=== PATIENT | female | born 1985 | race American Indian/Alaskan Native ===

== ENCOUNTER 2017-04-06 22:10 | Inpatient (IN) | payer OTHER ==
[2017-04-06 22:51] VITALS: BMI 26.1
--- NOTE | 2017-04-06 23:07 | ED PDOC ---
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 Patient states that she was walking to the bathroom and next thing she remembers is that she woke up laying down on the floor with her godmother waking her up. At the present time, patient is complaining of feeling dizzy, with chronic headache and facial pain related to her cancer as well as a tactile fever. Otherwise: (-) tinnitus, (-) hearing loss, (-) chest pain, (-) dyspnea, (-) cough, (-) sore throat, (-) abdominal pain, (-) vomiting, (-) diarrhea, (-) urinary symptoms, (-) GI bleeding. Patient reports she has had a similar episode in the past, she ended up being hospitalized for inflammation and her sinuses and received IV antibiotics. Past Medical History - Provider Review Nursing Documentation Reviewed: Yes - Cardiac Hx Cardiac Disorders: No - Pulmonary Hx Respiratory Disorders: No - Neurological Hx Neurological Disorder: No - HEENT Hx HEENT Disorder: No - Renal Hx Renal Disorder: No - Endocrine/Metabolic Hx Endocrine Disorders: No - Hematological/Oncological Hx Cancer: Yes (Nasal Pharengeal Carcinoma) - Integumentary Hx Dermatological Disorder: No - Musculoskeletal/Rheumatological Hx Musculoskeletal Disorders: No - Gastrointestinal Hx Gastrointestinal Disorders: No - Genitourinary/Gynecological Hx Genitourinary Disorders: No - Psychiatric Hx Psychophysiologic Disorder: No Hx Substance Use: No - Anesthesia Hx Anesthesia: No Family/Social History - Physician Review Nursing Documentation Reviewed: Yes Family/Social History: No Known Family HX Smoking Status: Never Smoked Hx Alcohol Use: No Hx Substance Use: No Allergies/Home Meds Allergies/Adverse Reactions: Allergies acetaminophen [From Percocet] Allergy (Verified 04/06/17 22:56) RASH ketorolac [From Toradol] Allergy (Verified 04/06/17 22:56) RASH metoclopramide [From Reglan] Allergy (Verified 04/06/17 22:56) RASH ondansetron [From Zofran (as hydrochloride)] Allergy (Verified 04/06/17 22:56) RASH oxycodone [From Percocet] Allergy (Verified 04/06/17 22:56) RASH lactose Adverse Reaction (Verified 04/06/17 22:56) RASH Review of Systems - Review of Systems Constitutional: Normal, Fevers (tactile). 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 absent: Vision Changes , Photophobia, Eye Pain ENT: Normal. absent: Hearing Changes, Tinnitus, Sore Throat, Rhinorrhea Respiratory: Normal. absent: SOB, Cough, Sputum Cardiovascular: Normal. absent: Chest Pain, Palpitations, Edema Gastrointestinal: Normal. absent: Abdominal Pain, Stool Changes, Appetite Changes Musculoskeletal: Normal. absent: Arthralgias, Back Pain, Neck Pain Skin: Normal Neurological: Normal, Headache (chronic headache related to her cancer), Dizziness. absent: Focal Weakness, Gait Changes, Speech Changes, Facial Droop Physical Exam - Physical Exam Narrative Physical Exam (Text): 04/07/17 02:14 GENERAL APPEARANCE: Patient is awake, alert, oriented x 3, in moderate painful distress. SKIN: Warm, dry; (-) cyanosis. HEAD: (-) scalp swelling, (+) diffuse tenderness to the face and scalp. EYES: (-) conjunctival pallor. ENMT: TMs normal. Mucous membranes dry. NECK: (+) mild anterior tenderness, (-) stiffness, (-) lymphadenopathy. Carotids : (-) bruit. CHEST AND RESPIRATORY: (-) rales, (-) rhonchi, (-) wheezes; breath sounds equal bilaterally. HEART AND CARDIOVASCULAR: (-) irregularity; (-) murmur, (-) gallop. ABDOMEN AND GI: Soft; (-) distention, (-) tenderness, (-) rebound, (-) guarding , (-) palpable masses, (-) flank tenderness. EXTREMITIES: (-) deformity; (-) edema. Distal pulses: present. NEURO AND PSYCH: Mental status as above. fisher hoop net: (-) nystagmus; Pupils equal & reactive, EOMI, (-) facial asymmetry; (-) dysarthria; tongue and uvula midline. Strength and DTRs symmetric. Gait: normal. Vital Signs Temp Pulse Resp BP Pulse Ox 04/06/17 22:40 98.1 F 85 18 139/85 100 Medical Decision Making ED Course and Treatment: 04/07/17 02:15 31 yo F with PMD of anemia and nasopharyngeal cancer, presents with syncopal episode prior to arrival. Plan: -- Labs -- IV fluids -- Urinalysis -- EKG -- CXR -- Dilaudid / benadryl -- Reassess and disposition -- CT head / maxillofacial 04/07/17 02:20 CXR : NAD, as read by PA EKG: NSR at 90 bpm, (-) acute ST changes, as read by PA. Diagnostic results reviewed and discussed with the patient in great detail. On re-evaluation, patient reports continued pain despite initial dose of 2 mg of dilaudid IV. On re-evaluation, patient is ambulating in the ER in no acute distress. Results d/w the patient. Rocephin 1 g IV and another dose of 2 mg IV dilaudid ordered for pain. Case d/w medical videographer and Dr. Guillen, agrees with current plan. Patient states she fully agrees with and understands further plan and care. I have given the patient opportunity to ask any additional questions. - Lab Interpretations Lab Results: 04/06/17 23:43 04/06/17 23:43 Lab Results 04/06/17 23:43: Sodium 139, Potassium 4.1, Chloride 105, Carbon Dioxide 28, Anion Gap 10, BUN 12, Creatinine 0.7, Est GFR ( Amer) > 60, Est GFR (Non- Af Amer) > 60, Random Glucose 82, Calcium 9.5, Total Bilirubin 0.2, AST 21, ALT 25, Alkaline Phosphatase 61, Lactate Dehydrogenase 497, Total Creatine Kinase 37 , Troponin I < 0.01, Total Protein 6.5, Albumin 3.8, Globulin 2.7, Albumin/ Globulin Ratio 1.4 04/06/17 23:43: Urine Color Yellow, Urine Appearance Sl cloudy, Urine pH 6.0, Ur Specific [place] >= 1.030, Urine Protein 30 H, Urine Glucose (UA) Negative, Urine Ketones Trace H, Urine Blood Negative, Urine Nitrate Negative, Urine Bilirubin Negative, Urine Urobilinogen 0.2, Ur Leukocyte Esterase Trace H, Urine RBC 0 - 2, Urine WBC 1 - 3, Ur Epithelial Cells 1 - 3, Calcium Oxalate Crystal Small, Urine Bacteria Few, Urine Other Mucus 04/06/17 23:43: WBC 6.1, RBC 3.59, Hgb 10.0 L, Hct 31.2 L, MCV 86.9, MCH 27.9, MCHC 32.1, RDW 16.1 H, Plt Count 291, MPV 10.6, Gran % 81.0 H, Lymph % (Auto) 9.8 L, [place] % (Auto) 6.2 H, Eos % (Auto) 2.8, Baso % (Auto) 0.2, Gran # 4.95, Lymph # 0.6 L, [place] # 0.4, Eos # 0.2, Baso # 0.01 I have reviewed the lab results: Yes (Hgb 10 / Hct 31. Urinalysis +ketones and + protien) - RAD Interpretation Narrative RAD Interpretations (Text): 04/07/17 02:18 CT head: FINDINGS: Limitations: Brain: There is no mass effect or midline shift, and there is no specific finding of intracranial metastasis or of hemorrhage within the limitations of axial noncontrast head CT. Ventricles: Unremarkable. No ventriculomegaly. Bones/joints: No fractures are seen. Series 3 image 2, there is suspicion for bony erosion of the clivus, and malignancy should be excluded. Soft tissues: Unremarkable. Sinuses: There are surgical changes with partial resection of the sphenoid with nonvisualization of the sphenoid sinuses. Comparison with surgical history and previous imaging is strongly recommended. There is mucoperiosteal thickening in the bilateral left greater than right ethmoids and in the left frontal sinus. Mastoid air cells: The bilateral mastoid air cells are predominantly opacified and mastoiditis is a consideration. Nasopharynx: Please note this noncontrast CT is not appropriate for exclusion of recurrent malignancy in this patient with a history of nasopharyngeal malignancy. In addition, previous imaging is not available for review. IMPRESSION: no mass effect or midline shift. Suspicion for malignant involvement of the clivus. Extensive postoperative changes of the sphenoid, nasopharynx. Dictated and Authenticated by: Yokasta Morales MD 04/07/2017 1:44 AM Eastern Time ([place] & [place]) CT maxillofacial: FINDINGS: Bones/joints: Included portions of the cervical spine with no apparent malalignment. No acute fracture. Soft tissues: Normal epiglottis. Orbits: Unremarkable. Sinuses: There is redemonstration of opacification of the bilateral left greater than right ethmoid air cells, the left frontal sinus. Redemonstration that the majority of the sphenoid including the sphenoid sinuses is not visible and correlation with surgical history is advised. There is dense opacification of the bilateral maxillary sinuses. Sinus pathology certainly might contribute to the acute symptoms of headache. No air-fluid levels. Brain: Please refer also to CT of the brain. Sella: The sella turcica and appears partly eroded posteriorly as well as expanded. Other findings: There is redemonstration of a moth-eaten appearance to the clivus which is suspicious for malignancy. The pterygoid plates are present, coronal image 28 an irregular appearance to the right medial pterygoid which may be partly related to previous treatment with malignancy not excluded.. Patient is status post resection of the posterior nasal septum and sphenoid sinuses, with partial resection of the bilateral medial maxillary ivey , and the turbinates. IMPRESSION: suspicion for recurrent malignancy, correlation with surgical history and correlation with previous imaging is strongly recommended, further noting the great limitations of noncontrast CT. Specific suspicion for involvement of the clivus with metastatic disease, specific concern regarding expansion and erosion of the sella turcica. Magnetic resonance imaging is favored for a next step in evaluation. Extensive disease of the remaining paranasal sinuses noting that there has been resection of the sphenoid sinuses. Dictated and Authenticated by: Yokasta Morales MD 04/07/2017 1:57 AM Eastern Time ([place] & [place]) Radiology Orders: 04/06/17 23:07 CHEST TWO VIEWS (PA/LAT) [RAD] Stat 04/06/17 23:12 HEAD W/O CONTRAST [CT] Stat MAXILLOFACIAL W/O CONTRAST [CT] Stat - Medication Orders Current Medication Orders: Hydromorphone HCl (Dilaudid) 2 mg IVP ONCE ONE Stop: 04/07/17 02:16 Discontinued Medications Diphenhydramine HCl (Benadryl) 25 mg IVP STAT STA Stop: 04/06/17 23:13 Last Admin: 04/07/17 00:11 Dose: 25 mg Hydromorphone HCl (Dilaudid) 2 mg IVP STAT STA Stop: 04/06/17 23:13 Last Admin: 04/07/17 00:11 Dose: 2 mg Sodium Chloride (Sodium Chloride 0.9%) 1,000 mls @ 1,000 mls/hr IV .Q1H STA Stop: 04/07/17 00:11 Last Admin: 04/07/17 00:12 Dose: 1,000 mls/hr - PA / FURNACE ATTENDANT / Resident Statement MD/DO has reviewed & agrees with the documentation as recorded. Disposition/Present on Arrival - Present on Arrival Any Indicators Present on Arrival: No History of DVT/PE: No History of Uncontrolled Diabetes: No Urinary Catheter: No History of Decub. Ulcer: No History Surgical Site Infection Following: None - Disposition Have Diagnosis and Disposition been Completed?: Yes Diagnosis: Syncope, Dehydration Disposition: HOSPITALIZED Disposition Time: 02:00 Patient Plan: Admission Condition: GOOD Discharge Instructions (ExitCare): Syncope (ED) Print Language: BOTSWANAN
[2017-04-06] MEDS ORDERED: DiphenhydrAMINE 50 mg/ml Inj IVP STA (23:12)
[2017-04-06] MEDS ORDERED: HYDROmorphone 2 mg/ml ISec IVP STA (23:12)
[2017-04-06] MEDS ORDERED: Sodium Chloride 0.9% 1,000 ML IV STA (23:12)
[2017-04-06 23:51] LABS: ADD MANUAL DIFF? NO
[2017-04-07 00:14] LABS: BASO # 0.01 K/mm3 (0.0-2.0); BASO % 0.2 % (0.0-3.0); EOS # 0.2 (0.0-0.7); EOS % 2.8 % (1.5-5.0); GRAN # 4.95 (1.4-6.5); HEMATOCRIT 31.2 % (36.0-48.0); LYMPH # 0.6 (1.2-3.4); LYMPH % 9.8 % (22.0-35.0); MEAN CELL VOLUME 86.9 fL (80.0-105.0); MEAN CORPUSCULAR HEMOGLOBIN 27.9 pg (25.0-35.0); MEAN CORPUSCULAR HGB CONC 32.1 g/dl (31.0-37.0); MEAN PLATELET VOLUME 10.6 fl (7.0-11.0); MONO # 0.4 (0.1-0.6); MONO % 6.2 % (1.0-6.0); PLATELET COUNT 291 10^3/uL (120.0-450.0); RED CELL DISTRIBUTION WIDTH 16.1 % (11.5-14.5); WHITE BLOOD COUNT 6.1 10^3/ul (4.5-11.0)
[2017-04-07 00:15] LABS: URINE BILIRUBIN NEGATIVE (NEGATIVE); URINE BLOOD NEGATIVE (NEGATIVE); URINE GLUCOSE (UA) NEGATIVE (NEGATIVE); URINE KETONE TRACE mg/dL (NEGATIVE); URINE LEUKOCYTE ESTERASE TRACE Leu/uL (NEGATIVE); URINE PROTEIN 30 mg/dL (<30 mg/dL); URINE UROBILINOGEN 0.2 E.U./dL (<1 E.U./dL)
[2017-04-07 00:16] LABS: URINE APPEARANCE SL CLOUDY (CLEAR); URINE COLOR YELLOW (YELLOW)
[2017-04-07 00:18] LABS: ALB/GLOB RATIO 1.4 (1.1-1.8); ALKALINE PHOSPHATASE 61 U/L (38-133); ALT/SGPT 25 U/L (7-56); AST/SGOT 21 U/L (15-39); BILIRUBIN,TOTAL 0.2 mg/dL (0.2-1.3); BLOOD UREA NITROGEN 12 mg/dL (7-21); CALCIUM 9.5 mg/dL (8.4-10.5); CARBON DIOXIDE 28 mmol/L (21-33); CHLORIDE 105 mmol/L (98-107); GFR AFRICAN-AMERICAN > 60; GLUCOSE,RANDOM 82 mg/dL (70-110); POTASSIUM 4.1 mmol/L (3.6-5.0); SODIUM 139 mmol/L (132-148); TOTAL PROTEIN 6.5 g/dL (5.8-8.3)
[2017-04-07 00:32] LABS: URINE CALCIUM OXALATE CRYSTALS SMALL /hpf; URINE RBC 0 - 2 /hpf (0-2)
[2017-04-07 00:33] LABS: URINE BACTERIA FEW (NEG)
[2017-04-07 00:35] LABS: TROPONIN I < 0.01 ng/mL
--- NOTE | 2017-04-07 01:44 | CT ---
EXAM: CT Head Without Intravenous Contrast CLINICAL HISTORY: 31 years old, female; Pain; Headache; Additional info: Headache, h/o nasal pharyngeal cancer TECHNIQUE: Axial computed tomography images of the head/brain without intravenous contrast. This CT exam was performed using one or more of the following dose reduction techniques: automated exposure control, adjustment of the mA and/or kV according to patient size, and/or use of iterative reconstruction technique. EXAM DATE/TIME: Exam ordered 04/06/2017 11:12 PM COMPARISON: No relevant prior studies available. FINDINGS: Limitations: Brain: There is no mass effect or midline shift, and there is no specific finding of intracranial metastasis or of hemorrhage within the limitations of axial noncontrast head CT. Ventricles: Unremarkable. No ventriculomegaly. Bones/joints: No fractures are seen. Series 3 image 2, there is suspicion for bony erosion of the clivus, and malignancy should be excluded. Soft tissues: Unremarkable. Sinuses: There are surgical changes with partial resection of the sphenoid with nonvisualization of the sphenoid sinuses. Comparison with surgical history and previous imaging is strongly recommended. There is mucoperiosteal thickening in the bilateral left greater than right ethmoids and in the left frontal sinus. Mastoid air cells: The bilateral mastoid air cells are predominantly opacified and mastoiditis is a consideration. Nasopharynx: Please note this noncontrast CT is not appropriate for exclusion of recurrent malignancy in this patient with a history of nasopharyngeal malignancy. In addition, previous imaging is not available for review. IMPRESSION: no mass effect or midline shift. Suspicion for malignant involvement of the clivus. Extensive postoperative changes of the sphenoid, nasopharynx. Please note this axial noncontrast CT is not appropriate for exclusion of recurrent malignancy in this patient with a history of nasopharyngeal malignancy. In addition, previous imaging is not available for review.
--- NOTE | 2017-04-07 01:58 | CT ---
EXAM: CT Maxillofacial Without Intravenous Contrast CLINICAL HISTORY: 31 years old, female; Pain; Jaw pain; Additional info: Headache, h/o nasal pharyngeal cancer TECHNIQUE: Axial computed tomography images of the face without intravenous contrast. This CT exam was performed using one or more of the following dose reduction techniques: automated exposure control, adjustment of the mA and/or kV according to patient size, and/or use of iterative reconstruction technique. Coronal and sagittal reformatted images were created and reviewed. EXAM DATE/TIME: Exam ordered 04/06/2017 11:12 PM COMPARISON: No relevant prior studies available. FINDINGS: Bones/joints: Included portions of the cervical spine with no apparent malalignment. No acute fracture. Soft tissues: Normal epiglottis. Orbits: Unremarkable. Sinuses: There is redemonstration of opacification of the bilateral left greater than right ethmoid air cells, the left frontal sinus. Redemonstration that the majority of the sphenoid including the sphenoid sinuses is not visible and correlation with surgical history is advised. There is dense opacification of the bilateral maxillary sinuses. Sinus pathology certainly might contribute to the acute symptoms of headache. No air-fluid levels. Brain: Please refer also to CT of the brain. Sella: The sella turcica and appears partly eroded posteriorly as well as expanded. Other findings: There is redemonstration of a moth-eaten appearance to the clivus which is suspicious for malignancy. The pterygoid plates are present, coronal image 28 an irregular appearance to the right medial pterygoid which may be partly related to previous treatment with malignancy not excluded.. Patient is status post resection of the posterior nasal septum and sphenoid sinuses, with partial resection of the bilateral medial maxillary ivey, and the turbinates. IMPRESSION: suspicion for recurrent malignancy, correlation with surgical history and correlation with previous imaging is strongly recommended, further noting the great limitations of noncontrast CT. Specific suspicion for involvement of the clivus with metastatic disease, specific concern regarding expansion and erosion of the sella turcica. Magnetic resonance imaging is favored for a next step in evaluation. Extensive disease of the remaining paranasal sinuses noting that there has been resection of the sphenoid sinuses.
[2017-04-07] MEDS ORDERED: cefTRIAXone 1 gm 1 GM/100 ML BAG IVPB STA (02:01)
[2017-04-07] MEDS ORDERED: HYDROmorphone 2 mg/ml ISec IVP ONE (02:15)
--- NOTE | 2017-04-07 02:37 | CP.PCM.HP ---
Addendum entered and electronically signed by Champ Lozano DO 04/07/17 02:52: [facility] had called to state that the CT scan showed the possibility of a fungal sinusitis Original Note: <Champ Lozano - Last Filed: 04/07/17 02:30> History of Present Illness - History of Present Illness History of Present Illness: This patient is a 31 AA F w/ a PMHx of Nasopharyngeal Carcinoma, still currently under treatment (radiation and chemotherapy) and HTN who is presenting to the ED w/ a Syncopal episode. The patient states she was laying on the couch, went to get up to go [facility], and the next thing she remembers is her auntie slapping her in the face to wake her up. She denies tongue biting, urinary incontinence, fecal incontinence. No post ictal state was reported by the ED staff or aunt. She is currently complaining of a headache that she has had on and off since she discovered she had cancer. She states it feels exactly the same as when she has sinus infections when she goes to [facility] which is where she normally gets treated. She denies any fevers/chills, CP, SOB, abdominal pain , N/V/D, dysuria/freq/urg, or lower extremity pain/swelling. Allergies: Tylenol, Ketoralac, Metoclopramide, Zofran Surgeries: tumor debulking last october FamHx: unknown; patient is adopted Social: Lives at home, unemployed; currently on home dilaudid which is "not helping anymore" Meds: Labetalol 200mg BID, Norvasc 2.5mg daily In the ED CT scans were done which showed metastatic carcinoma of the nasopharyngeal sinuses which is unable to be graded against previous scans since she has never been here. Present on Admission - Present on Admission Any Indicators Present on Admission: No History of DVT/PE: No History of Uncontrolled Diabetes: No Urinary Catheter: No Decubitus Ulcer Present: No Review of Systems - Review of Systems All systems: reviewed and no additional remarkable complaints except Past Patient History - Past Social History Smoking Status: Never Smoked - CARDIAC Hx Cardiac Disorders: No - PULMONARY Hx Respiratory Disorders: No - NEUROLOGICAL Hx Neurological Disorder: No - HEENT Hx HEENT Problems: No - RENAL Hx Chronic Kidney Disease: No - ENDOCRINE/METABOLIC Hx Endocrine Disorders: No - HEMATOLOGICAL/ONCOLOGICAL Hx Cancer: Yes (Nasal Pharengeal Carcinoma) - INTEGUMENTARY Hx Dermatological Problems: No - MUSCULOSKELETAL/RHEUMATOLOGICAL Hx Musculoskeletal Disorders: No - GASTROINTESTINAL Hx Gastrointestinal Disorders: No - GENITOURINARY/GYNECOLOGICAL Hx Genitourinary Disorders: No - PSYCHIATRIC Hx Psychophysiologic Disorder: No Hx Substance Use: No - SURGICAL HISTORY Hx Surgeries: No - ANESTHESIA Hx Anesthesia: No Meds Allergies/Adverse Reactions: Allergies Allergy/AdvReac Type Severity Reaction Status Date / Time acetaminophen [From Percocet] Allergy RASH Verified 04/06/17 22:56 ketorolac [From Toradol] Allergy RASH Verified 04/06/17 22:56 metoclopramide [From Reglan] Allergy RASH Verified 04/06/17 22:56 ondansetron Allergy RASH Verified 04/06/17 22:56 [From Zofran (as hydrochloride)] oxycodone [From Percocet] Allergy RASH Verified 04/06/17 22:56 lactose AdvReac RASH Verified 04/06/17 22:56 Physical Exam - Constitutional Appears: Well, Non-toxic - Head Exam Head Exam: ATRAUMATIC Additional comments: Patient is sitting up in bed, grabbing head - Eye Exam Eye Exam: EOMI, Normal appearance, PERRL Additional comments: blind in the left eye - ENT Exam ENT Exam: Mucous Membranes Moist - Neck Exam Neck exam: Positive for: Full Rom. Negative for: Lymphadenopathy - Respiratory Exam Respiratory Exam: Clear to Auscultation Bilateral, NORMAL BREATHING PATTERN. absent: Rales, Rhonchi, Wheezes - Cardiovascular Exam Cardiovascular Exam: +S1, +S2 - GI/Abdominal Exam GI & Abdominal Exam: Normal Bowel Sounds, Soft. absent: Tenderness - Extremities Exam Extremities exam: Positive for: full ROM, normal inspection. Negative for: calf tenderness, pedal edema - Back Exam Back exam: NORMAL INSPECTION. absent: CVA tenderness (L), CVA tenderness (R) - Neurological Exam Neurological exam: Alert, CN II-XII Intact, Oriented x3 - Psychiatric Exam Psychiatric exam: Normal Affect, Normal Mood Results - Vital Signs Recent Vital Signs: Last Vital Signs Temp 98.1 F 04/06/17 22:40 Pulse 85 04/06/17 22:40 Resp 18 04/06/17 22:40 BP 139/85 04/06/17 22:40 Pulse Ox 100 04/06/17 22:40 - Labs Result Diagrams: 04/06/17 23:43 04/06/17 23:43 Labs: Laboratory Results - last 24 hr 04/06/17 04/06/17 04/06/17 23:43 23:43 23:43 WBC 6.1 RBC 3.59 Hgb 10.0 L Hct 31.2 L MCV 86.9 MCH 27.9 MCHC 32.1 RDW 16.1 H Plt Count 291 MPV 10.6 Gran % 81.0 H Lymph % (Auto) 9.8 L [place] % (Auto) 6.2 H Eos % (Auto) 2.8 Baso % (Auto) 0.2 Gran # 4.95 Lymph # 0.6 L [place] # 0.4 Eos # 0.2 Baso # 0.01 Sodium 139 Potassium 4.1 Chloride 105 Carbon Dioxide 28 Anion Gap 10 BUN 12 Creatinine 0.7 Est GFR ( Amer) > 60 Est GFR (Non-Af Amer) > 60 Random Glucose 82 Calcium 9.5 Total Bilirubin 0.2 AST 21 ALT 25 Alkaline Phosphatase 61 Lactate Dehydrogenase 497 Total Creatine Kinase 37 Troponin I < 0.01 Total Protein 6.5 Albumin 3.8 Globulin 2.7 Albumin/Globulin Ratio 1.4 Urine Color Yellow Urine Appearance Sl cloudy Urine pH 6.0 Ur Specific [place] >= 1.030 Urine Protein 30 H Urine Glucose (UA) Negative Urine Ketones Trace H Urine Blood Negative Urine Nitrate Negative Urine Bilirubin Negative Urine Urobilinogen 0.2 Ur Leukocyte Esterase Trace H Urine RBC 0 - 2 Urine WBC 1 - 3 Ur Epithelial Cells 1 - 3 Calcium Oxalate Crystal Small Urine Bacteria Few Urine Other Mucus Assessment & Plan - Assessment and Plan (Free Text) Assessment: 31 F admitted for syncopal episode Syncope -most likely related to nasopharyngeal CA; already known as metastatic -Brain MRI w/ and w/o contrast f/u results -please refer to CT scan reports for complete report HTN -c/w home meds Prophylaxis Protonix Lovenox Regular Diet Case Discussed with Dr. Mindy Lozano PGY1 Night Float Decision To Admit - Pt Status Changed To: Hospital Disposition Of: Observation - . Bed Request Type: Telemetry Admitting Physician: Sukhjinder Guillen MD <Mindy MOLINA,Sukhjinder - Last Filed: 04/07/17 13:43> Results - Vital Signs Recent Vital Signs: Last Vital Signs Temp 98.8 F 04/07/17 07:40 Pulse 80 04/07/17 11:55 Resp 16 04/07/17 11:55 BP 129/76 04/07/17 11:55 Pulse Ox 98 04/07/17 11:55 - Labs Result Diagrams: 04/06/17 23:43 04/06/17 23:43 Attending/Attestation - Attestation I have personally seen and examined this patient.: Yes I have fully participated in the care of the patient.: Yes I have reviewed all pertinent clinical information: Yes Notes (Text): 04/07/17 13:42 -I agree with the above H&P completed by the resident physician.
[2017-04-07] MEDS: HYDROmorphone 2 mg/ml ISec IVP SCH ×6 (03:42→21:36)
--- NOTE | 2017-04-07 08:13 | RAD ---
HISTORY: Fever and syncope COMPARISON: No prior. TECHNIQUE: Chest PA and lateral FINDINGS: LUNGS: The lungs are well inflated and clear. PLEURA: No significant pleural effusion identified. No pneumothorax apparent. CARDIOVASCULAR: Normal. OSSEOUS STRUCTURES: No significant abnormalities. VISUALIZED UPPER ABDOMEN: Normal. OTHER FINDINGS: None. IMPRESSION: No active pulmonary disease.
[2017-04-07] MEDS ORDERED: Fluconazole IV 200mg/100 ml NS 100 ML IVPB SCH (10:00)
[2017-04-07] MEDS ORDERED: cefTRIAXone 1 gm in NS 100ml IVPB SCH (10:00)
[2017-04-07] MEDS ORDERED: cefTRIAXone (Rocephin) 1 gm Inj IVPB SCH (10:00)
[2017-04-07] MEDS: DiphenhydrAMINE 50 mg/ml Inj IVP PRN ×2 (10:36→17:36)
[2017-04-07] MEDS: Enoxaparin 40 mg Syringe SC SCH (10:38)
--- NOTE | 2017-04-07 10:44 | CARD ---
APPROVED REPORT EKG Measurement Heart [id number] <Conclusion> Normal sinus rhythm Normal ECG
[2017-04-07 16:32] LABS: BLOOD UREA NITROGEN 11 mg/dL (7-21); GFR AFRICAN-AMERICAN > 60; GLUCOSE,RANDOM 81 mg/dL (70-110); POTASSIUM 4.2 mmol/L (3.6-5.0); SODIUM 139 mmol/L (132-148)
[2017-04-07 16:33] LABS: ALB/GLOB RATIO 1.4 (1.1-1.8); ALKALINE PHOSPHATASE 69 U/L (38-133); ALT/SGPT 28 U/L (7-56); AST/SGOT 15 U/L (15-39); BILIRUBIN,TOTAL 0.2 mg/dL (0.2-1.3); CALCIUM 9.7 mg/dL (8.4-10.5); CARBON DIOXIDE 26 mmol/L (21-33); CHLORIDE 106 mmol/L (95-110); TOTAL PROTEIN 6.6 g/dL (5.8-8.3)
--- NOTE | 2017-04-07 17:42 | CON ---
DATE: 04/07/2017 REQUESTING PHYSICIAN: Sukhjinder Guillen MD REASON FOR CONSULTATION: History of nasopharyngeal cancer, sinusitis. HISTORY OF PRESENT ILLNESS: The patient is a 31-year-old female with a diagnosis of nasopharyngeal c arcinoma diagnosed in 10/2016, status post functional endoscopic sinus surgery with biopsy and debride ment of nasopharyngeal carcinoma at [facility] followed by the oncologist at [facility] as well as the neurosurgeons, Dr. Lennon and outbound sales specialist, Dr. Darshan Hobbs. The [facility] ent has undergone and completed radiation chemotherapy with 6 weeks of radiation and cisplatin chemot herapy per the patient, finishing in approximately 4-6 weeks prior. Her medical history has been com plicated with known DVT and PE, currently on Xarelto. She also reports a history of hypertension. S he presented to [facility] last evening with a complaint of syncope being found by her fa tere member on the floor. She was admitted to the medical service and patient had imaging performed of the maxillofacial structures which revealed findings consistent with a history of nasopharyngeal c arcinoma with extensive sinus surgery and current sinus disease. Otolaryngology service was consulte d for further evaluation and treatment of the patient. At the time of consultation, the patient hers elf endorses the history as above. She reports 2-3 episodes of syncope in the past 2-3 months. She reports back in October when she was diagnosed with nasopharyngeal carcinoma, she was found to have h ypesthesia of the left face as well as losing her vision in her left eye and subsequently that is why she had the extensive sinus surgery. She reports since surgery, she has followed up with Dr. Hobbs, most recently approximately 1-1/2 month prior for routine followup and was told to continue irrigatio ns. She was scheduled for a PET scan in the next approximate month. She reports that chronically sh e has hypesthesia of the left face as well as blurry vision of her left eye. She also has chronic he adache and chronic facial pain as well as intermittent otalgia. She cannot elicit a precipitating ep isode of her syncopal episode. She denies any seizure symptoms, fevers, chills, purulent rhinorrhea, otalgia, otorrhea, tinnitus, vertigo, hearing loss, change in her facial pain, odontalgic pain, jaw pain, no sore throat, odynophagia, dysphagia, change in voice. She reports not compliant with nasal irrigations. PAST MEDICAL HISTORY: As above. MEDICATIONS: Reviewed. ALLERGIES: ACETAMINOPHEN, KETOROLAC, REGLAN AND ZOFRAN. PAST SURGICAL HISTORY: As above. SOCIAL HISTORY: The patient denies tobacco, alcohol or illicit drug use. She lives at home. She is unemployed. REVIEW OF SYSTEMS: Conducted in entirety and the pertinent positives listed as such in the history o f present illness. PHYSICAL EXAMINATION: VITAL SIGNS: Temperature is 98.8, pulse is 80, blood pressure is 129/76, respiratory rate is 16, oxy gen saturation 98% on room air. GENERAL: The patient appears to be an age appropriate 31-year-old female. She is no acute distress. She is answering questions appropriately in full sentences. She is awake, alert and oriented x 3. FACE: She reports hypesthesia to light touch of the entire left face when compared to the right. She is House-Brackmann I/. EYES: Her extraocular muscles are intact. Pupils are equal, reactive to light. She reports chronic vision loss in her left eye. EARS: External auricles themselves are unremarkable. Mastoid tips are free of erythema, induration or fluctuance. The right and left external canal exhibits a presence of moderate significant cerumen . Tympanic membrane is only partially visualized bilaterally with no noted erythema. There is no pu rulence in the canal. NOSE: Nasal dorsum itself is unremarkable. On anterior rhinoscopy, it appears the septum is in the midline. There is significant crusting of the nasal mucosa bilaterally, obscuring view further into the nasal cavity. The patient is adamantly refusing nasal endoscopy at this time despite the risks o f refusing the procedure. She reported that she has had a nasal endoscopy in the past and she is cur rently refusing any further endoscopy. It was reported to the patient that the risks of refusing it would be lack of diagnosis and inability to culture or evaluate for fungal sinusitis. She expressed clear understanding of the risks of lack of diagnosis and nasal endoscopy was deferred secondary to p loreto's preference. ORAL CAVITY AND OROPHARYNX: Lips and buccal mucosa unremarkable, dentition is unremarkable. Tongue is mobile and midline. Uvula is midline. There is no bulge in soft palate or posterior pharyngeal w all. NECK: Supple. There is no crepitus on the neck. Trachea is midline. There is no collection. LABORATORY DATA: White count 6.1, hemoglobin is 10.0, platelets of 291. Chemistries are unremarkabl e. RADIOGRAPHIC STUDIES: The patient had a maxillofacial CT performed on 04/06/2017. Sinuses demonstrate d opacification of bilateral left greater than right, ethmoidal air cells and left frontal sinus. It appears the sphenoid sinuses are not visualized secondary to surgical history. The maxillary sinuse s appear to have chronic inflammation with no noted air fluid levels. There appears to be some moth- eaten appearance of the clivus and possibly the right pterygoid plate consistent with the patient's n asopharyngeal carcinoma. It appears the patient has had extensive functional endoscopic sinus surger y with posterior septectomy with large sphenoidotomy and extensive ethmoidectomy as well as removal o f the middle and superior turbinates. ASSESSMENT AND PLAN: The patient is a 31-year-old female with a history of nasopharyngeal carcinoma, status post functional endoscopic sinus surgery and debridement of the nasopharyngeal carcinoma stat us post chemotherapy and radiation therapy, finishing approximately 4-6 weeks prior, who presented wi th a syncopal episode, currently admitted to medical service with worked up for her syncope. Based o n radiographic imaging, it appears the patient has had extensive sinus surgery in the past with what appears to be acute on chronic inflammation to the residual sinuses. She is currently refusing nasal endoscopy at this time, which limits diagnostic ability without further view of the sinuses to obtai n culture to evaluate for fungal sinusitis. The patient expressed clear understanding of the risks o f refusing examinations. PLAN: The plan will be to optimize the patient from a medical perspective. I recommend continuing t he workup of the syncope per the medical service and agree with the neurology consultation. Recommen d continue IV antibiotics per the infectious disease recommendations. In terms of the nasal hygiene, the patient was also ordered saline nasal spray which she should use very frequently. She was also ordered Bactroban to the nares t.i.d. The plan is to optimize the patient medically and hope to tra nsition to oral antibiotics and have her followup with her primary otolaryngology surgeon, Dr. Hobbs, in the outpatient center and get further workup with PET scan. Additionally, we recommend agreeing t o the MRI of the head and sinuses for further diagnostic workup. The findings and plan were discusse d in detail with the patient and nursing staff. We thank you for the consultation. Paulo Tucker DO cc: [id number] TT: 04/07/2017 17:41:38 Confirmation # [id number] Dictation # [id number] dn
[2017-04-07] MEDS ORDERED: diaZEpam 10 mg/2 ml Inj IVP STA ×2 (18:18→18:28)
--- NOTE | 2017-04-07 20:18 | CON ---
DATE: 04/07/2017 CHIEF COMPLAINT: Syncope. HISTORY OF PRESENT ILLNESS: This is a 31-year-old woman with history of nasopharyngeal cancer, statu s post functional endoscopic sinus surgery and debridement of the nasopharyngeal carcinoma, status po st chemotherapy and radiation, finishing approximately 4-6 weeks prior, who had a syncopal episode. Apparently, she was on her way to the bathroom which she did not urinate, but was found on the floor, had a syncopal event. She has had a history of syncopal events in the past. No history of seizures , no history of meningitis, no history of trauma to the brain. Otherwise, she is walking around with out any difficulty and is able to exactly tell me what she had. She does not seem to have any postic homa function, confusion. She had a CAT scan of the head, which basically demonstrated some opacifica tion, left greater than right, ethmoid cells in left frontal sinus and sphenoid sinuses, not visualiz ed secondary to surgical history. It is questionable if there is a moth-eating appearance of the cli vus, possibly the right pterygoid consistent with possibly nasopharyngeal carcinoma and possible catalina al sinusitis. Currently, no further syncopal events. CMP is unremarkable. PAST MEDICAL HISTORY: History of nasopharyngeal carcinoma, status post endoscopic sinus surgery, yesenia ridement of the nasopharyngeal carcinoma, status post chemo and radiation, history of syncopal event in the past. REVIEW OF SYSTEMS: A 14-point review of systems is negative except in the HPI. FAMILY HISTORY: Noncontributory. SOCIAL HISTORY: No illicit drug use, smoking, or ETOH abuse. MEDICATIONS: Reviewed via nurse's reconciliation sheet. ALLERGIES: ACETAMINOPHEN, KETOROLAC, METOCLOPRAMIDE, ONDANSETRON. FAMILY HISTORY: Noncontributory. PHYSICAL EXAMINATION: VITAL SIGNS: Temperature of 98.8, pulse rate of 80, blood pressure 132/76, respiratory rate 18, oxyg en 98% on room air. GENERAL: The patient is sitting up in bed in no acute distress. HEENT: Atraumatic, normocephalic. PERRLA. Extraocular muscles intact. NECK: Supple, no JVD, no adenopathy noted. LUNGS: Clear to auscultation. No adventitious sounds. HEART: S1, S2, normal rate and rhythm. No murmurs, rubs, or gallops. ABDOMEN: Soft, nontender, nondistended. Bowel sounds present. EXTREMITIES: No clubbing, no cyanosis. Peripheral pulses 2+ felt bilaterally. NEUROLOGIC: The patient is alert, oriented to person, place, month and year. Speech is fluent, with out any errors. Cranial nerves II through XII are intact. MOTOR: Moves all extremities equally. Toes downgoing bilaterally. SENSORY: Light touch, pinprick, proprioception, vibration intact. DEEP TENDON REFLEXES: 2+ throughout and 1 at the ankles. COORDINATION: [id number] intact. GAIT: Normal. Romberg negative. LABORATORY DATA: CMP in terms of chemistry are unremarkable: ASSESSMENT AND PLAN: This is a 31-year-old -[place] woman with history of nasopharyngeal car cinoma, status post functional endoscopic sinus surgery, debridement of nasopharyngeal carcinoma, sta tus post chemo and radiation. The patient, approximate 4-6 weeks ago, presented with a syncopal even t. No history of meningitis or seizure disorder in the past. Has history of two more syncopal event s in the past couple of months. She had a CT head which demonstrated some opacification bilateral, l eft greater than right, ethmoid cells in left frontal sinus. Appears the sphenoid sinuses are not vi sualized secondary to surgical history. She appears to have a moth-eating appearance of the clivus, possibly right pterygoid plate consistent with patient's nasopharyngeal carcinoma and questionable po ssible fungal sinusitis. I was called to evaluate for syncope. Likely syncope could be a transient c erebral hypoperfusion causing multiple syncopal episodes versus cardiac in etiology versus her underl rudy nasopharyngeal carcinoma state. At this time, recommend: 1. MRI of the brain with and without contrast for intracranial abnormality that could be correspondi ng to a syncopal event. 2. Orthostatic vital signs. 3. Unlikely a seizure due to there was no change in her CMP. 4. Recommend echocardiogram and continue with current present medical management. If there is any c hange in workup, get a cardiology consult and continue with current present management. No further n eurological workup needed at this time. David Hodge MD cc: [id number] TT: 04/07/2017 20:18:15 Confirmation # [id number] Dictation # [id number] rn
[2017-04-08] MEDS: DiphenhydrAMINE 50 mg/ml Inj IVP PRN ×3 (02:04→17:00)
[2017-04-08] MEDS: HYDROmorphone 2 mg/ml ISec IVP SCH ×4 (02:05→21:29)
--- NOTE | 2017-04-08 03:20 | CON ---
DATE: 04/07/2017 LOCATION: The patient was seen earlier today and is currently in room 377, bed 1. CHIEF COMPLAINT: Weakness since several days. HISTORY OF PRESENT ILLNESS: This is a 31-year-old female with past medical history of nasopharyngeal cancer diagnosed in 10/2016, history of anemia. The patient is status post chemotherapy. She had p artial removal of the tumor of the nasopharyngeal carcinoma and being treated by Dr. Jahaira Guzmán at [facility] and she was admitted after passing out. She is complaining of chronic headaches and fac ial pain. She had low-grade fevers, no chills. PAST MEDICAL HISTORY: Significant of the nasopharyngeal carcinoma. PAST SURGICAL HISTORY: Significant for the recent surgery of the same. ALLERGIES: THE PATIENT IS ALLERGIC TO ACETAMINOPHEN AND KETOROLAC, METOCLOPRAMIDE, ONDANSETRON, OXYC ODONE AND LACTOSE. MEDICATIONS AT HOME: Included Norvasc, Trandate and iron. PHYSICAL EXAMINATION: GENERAL: She is in bed, was seen earlier today in the Emergency Room. VITAL SIGNS: Temperature of 98, the blood pressure is 130/70, respiratory rate of 18 and blood press ure is noted, heart rate of 80. HEENT: Unremarkable. NECK: Supple. LUNGS: Have decreased breath sounds. HEART: Normal S1, S2. ABDOMEN: Soft, nontender. No rebound, no guarding. NEUROLOGIC: Patient is awake and alert. LABORATORY EXAMINATION: White count of 6.1, hemoglobin of 10, platelets of 291. Chemistries reveal a BUN of 12, creatinine of 0.7. Urinalysis is unremarkable. Microbiology is pending. The patient h ad a chest x-ray, which was lungs are clear. The patient had a CAT scan of the head, which showed no mass effect. There are bony erosions. Surgical changes and partial resection of the sphenoid. Consultation by Dr. Paulo Lindsey is reviewed and he states the patient is a 31-year-old female with nasopharyngeal carcinoma diagnosed in October, status post functional endoscopic sinus surgery and bi opsy and debridement at [facility] followed by complete radiation and chemotherapy, 6 weeks of radiation of cisplatin, chemotherapy finishing approximately 4-6 weeks ago, but by DVT and PE. On Xarelto. History of hypertension and a syncopal episode. He feels the patient is currently refusin g endoscopy. Dr. Champ Lozano's note is reviewed. He states the radiology is considered a fungal sinusitis. CAT scan of the sinuses is also reviewed, suspicion for recurrent malignancy, extensive disease. ASSESSMENT AND PLAN: A 31-year-old female with nasopharyngeal cancer in October, anemia, has had lele motherapy and radiation, history of hypertension, now admitted with syncope and questionable fungal s inusitis as raised by CAT scan. The patient is scheduled for MRI. It is not clear if the patient preston d been neutropenic and fungal versus atypical organisms versus bacterial infection versus recurrent m alignancy. Fungal sinusitis diagnosis can be gained by documenting by pathology, the invasion of the fungus in the sinus tissue and it is not a radiological diagnosis. Prior to starting any antifungal or any antibacterial therapy in this patient, who is clinically stable, afebrile, no white count, wo uld hold off on any antibiotics pending tissue diagnosis and will order a Fungitell, which is (1-3) b eta-D glucan and galactomannan levels. Sed rate and C-reactive protein and Aspergillus antibody and antigen, sed rate and C-reactive protein and procalcitonin. Would hold off any antifungal and any an tibiotics at this point pending further studies including a tissue diagnosis and workup for Aspergill us and tissue diagnosis. Bacterial infection workup. We will also order an HIV test and we will hol d off any antibiotic therapy. Will also order blood cultures, which have been already ordered, and u rine cultures and follow closely with you. Champ Soto MD cc: [id number] TT: 04/08/2017 03:19:53 Confirmation # [id number] Dictation # [id number] mn
[2017-04-08 07:40] LABS: ADD MANUAL DIFF? NO
[2017-04-08 07:50] LABS: BASO # 0.02 K/mm3 (0.0-2.0); BASO % 0.6 % (0.0-3.0); EOS # 0.2 (0.0-0.7); GRAN # 2.53 (1.4-6.5); GRAN % 70.5 % (50.0-68.0); HEMATOCRIT 27.8 % (36.0-48.0); LYMPH # 0.5 (1.2-3.4); MEAN CELL VOLUME 86.9 fL (80.0-105.0); MEAN CORPUSCULAR HEMOGLOBIN 27.2 pg (25.0-35.0); MEAN CORPUSCULAR HGB CONC 31.3 g/dl (31.0-37.0); MEAN PLATELET VOLUME 9.8 fl (7.0-11.0); MONO # 0.3 (0.1-0.6); MONO % 8.9 % (1.0-6.0); PLATELET COUNT 239 10^3/uL (120.0-450.0); RED CELL DISTRIBUTION WIDTH 16.2 % (11.5-14.5); WHITE BLOOD COUNT 3.6 10^3/ul (4.5-11.0)
[2017-04-08 08:07] LABS: ALB/GLOB RATIO 1.4 (1.1-1.8); ALKALINE PHOSPHATASE 65 U/L (38-133); ALT/SGPT 30 U/L (7-56); AST/SGOT 14 U/L (15-39); BILIRUBIN,TOTAL 0.1 mg/dL (0.2-1.3); BLOOD UREA NITROGEN 11 mg/dL (7-21); CALCIUM 9.2 mg/dL (8.4-10.5); CARBON DIOXIDE 27 mmol/L (21-33); CHLORIDE 106 mmol/L (98-107); GFR AFRICAN-AMERICAN > 60; GLUCOSE,RANDOM 92 mg/dL (70-110); SODIUM 140 mmol/L (132-148); TOTAL PROTEIN 5.9 g/dL (5.8-8.3)
[2017-04-08] MEDS ORDERED: diaZEpam 10 mg/2 ml Inj IVP ONE (08:19)
--- NOTE | 2017-04-08 08:22 | CP.PCM.PN ---
<Danielle Almeida - Last Filed: 04/08/17 14:17> Subjective - Date & Time of Evaluation Date of Evaluation: 04/08/17 Time of Evaluation: 07:40 - Subjective Subjective: Pt was seen and examined at bedside. Pt was found resting comfortably in bed. Pt has mild complaints of headache this morning and reports a brief dizzy episode while urinating this morning. Pt did not report any hematuria and pt has not had a bm in the past couple of days. Pt is tolerating diet well and able to ambulate. No active signs of bleeding. Pt denied fever, chills, sob, chest pains, abdominal pains, n/v/d/c or urinary symptoms. Objective - Vital Signs/Intake and Output Vital Signs (last 24 hours): Temp Pulse Resp BP Pulse Ox 97.6 F 75 18 119/72 99 04/07/17 16:00 04/08/17 05:46 04/07/17 20:12 04/07/17 20:12 04/07/17 16:00 Intake and Output: 04/08/17 04/08/17 06:59 18:59 Intake Total 740 240 Balance 740 240 - Medications Medications: Current Medications Amlodipine Besylate (Norvasc) 2.5 mg PO DAILY [facility] Last Admin: 04/07/17 10:38 Dose: 2.5 mg Diazepam (Valium) 2.5 mg IVP ONCE ONE PRN Reason: Protocol Stop: 04/08/17 08:20 Diphenhydramine HCl (Benadryl) 25 mg IVP Q6H PRN PRN Reason: itchiness Last Admin: 04/08/17 02:04 Dose: 25 mg Enoxaparin Sodium (Lovenox) 40 mg SC DAILY [facility] PRN Reason: Protocol Last Admin: 04/07/17 10:38 Dose: 40 mg Famotidine (Pepcid) 20 mg PO BID [facility] Last Admin: 04/07/17 17:38 Dose: 20 mg Hydromorphone HCl (Dilaudid) 2 mg IVP Q4H [facility] Last Admin: 04/08/17 05:29 Dose: 2 mg Ceftriaxone Sodium (Rocephin 1 Gram Ivpb) 1 gm in 100 mls @ 100 mls/hr IVPB DAILY [facility] Last Admin: 04/07/17 10:00 Dose: Not Given Fluconazole (Diflucan Iv 200 Mg/100 Ml Ns) 100 mls @ 100 mls/hr IVPB DAILY [facility] PRN Reason: Protocol Last Admin: 04/07/17 10:36 Dose: 100 mls/hr Labetalol HCl (Trandate) 200 mg PO BID [facility] Last Admin: 04/07/17 17:38 Dose: 200 mg Mupirocin (Bactroban Ointment) 1 gm NS TID [facility] Stop: 04/10/17 18:01 Last Admin: 04/07/17 22:00 Dose: 1 dose Sodium Chloride (Beach Nasal [place]) 3 ml NS Q4 [facility] Last Admin: 04/08/17 04:13 Dose: 1 dose - Labs Labs: 04/08/17 07:00 04/08/17 07:00 - Constitutional Appears: No Acute Distress - Head Exam Head Exam: ATRAUMATIC, NORMAL INSPECTION, NORMOCEPHALIC - Eye Exam Eye Exam: EOMI, Normal appearance, PERRL Pupil Exam: NORMAL ACCOMODATION, PERRL - ENT Exam ENT Exam: Mucous Membranes Moist, Normal Exam - Neck Exam Neck Exam: Full ROM, Normal Inspection. absent: Lymphadenopathy - Respiratory Exam Respiratory Exam: Clear to Ausculation Bilateral, NORMAL BREATHING PATTERN - Cardiovascular Exam Cardiovascular Exam: REGULAR RHYTHM, +S1, +S2. absent: Murmur - GI/Abdominal Exam GI & Abdominal Exam: Soft, Normal Bowel Sounds. absent: Tenderness - Extremities Exam Extremities Exam: Full ROM, Normal Capillary Refill, Normal Inspection. absent : Joint Swelling, Pedal Edema - Back Exam Back Exam: NORMAL INSPECTION - Neurological Exam Neurological Exam: Alert, Awake, CN II-XII Intact, Normal Gait, Oriented x3 - Psychiatric Exam Psychiatric exam: Anxious - Skin Skin Exam: Dry, Intact, Normal Color, Warm Assessment and Plan - Assessment and Plan (Free Text) Assessment: 31 F with a PMHx of Nasopharyngeal Carcinoma, still currently under treatment ( radiation and chemotherapy) and HTN admitted for Syncopal episode. Syncope -most likely related to nasopharyngeal CA; already known as metastatic -Brain MRI w/ and w/o contrast f/u results, pt unable to tolerate MRI due to claustrophobia - will retry today -please refer to CT scan reports for complete report Anemia - Hgb dropped 10.1 -> 8.7, no active signs of bleeding - will fu with anemia workup and coags Sinusitus Bacterial vs fungal - ID consulted, Dr. Soto recommended to hold abx until tissue diagnosis and fu with specific labs - ENT consulted, Dr. Tucker, recommend nasal hygiene and bactroban to nares - MRI demonstrated sinusitis and mastoiditis Nasopharyngeal carcinoma - under treatment - radiation and chemotherapy - will fu with MRI for possible mets - dilaudid for pain control HTN - Stable - continue home meds Hx PE - pt reports taking xarelto at home, will restart Tobacco abuse - counselled on tobacco cessation - offer nicotine patch Constipation - 2/2 opiates - miralax colace Prophylaxis Protonix Lovenox Regular Diet Seen reviewed and discussed with attending <Bruno Neil - Last Filed: 04/10/17 17:56> Objective - Vital Signs/Intake and Output Vital Signs (last 24 hours): Temp Pulse Resp BP Pulse Ox 99.6 F 79 19 142/98 H 100 04/10/17 17:00 04/10/17 17:00 04/10/17 17:00 04/10/17 17:18 04/10/17 17:00 Intake and Output: 04/10/17 04/10/17 06:59 18:59 Intake Total 540 Balance 540 - Medications Medications: Current Medications Amlodipine Besylate (Norvasc) 5 mg PO DAILY [facility] Benzonatate (Tessalon Perles) 100 mg PO TID [facility] Last Admin: 04/10/17 14:26 Dose: 100 mg Diphenhydramine HCl (Benadryl) 25 mg IVP Q6H PRN PRN Reason: itchiness Last Admin: 04/10/17 12:46 Dose: 25 mg Docusate Sodium (Colace) 100 mg PO BID [facility] Last Admin: 04/10/17 17:18 Dose: 100 mg Famotidine (Pepcid) 20 mg PO BID [facility] Last Admin: 04/10/17 17:18 Dose: 20 mg Hydromorphone HCl (Dilaudid) 2 mg IVP Q4H PRN PRN Reason: Pain, severe (8-10) Last Admin: 04/10/17 16:37 Dose: 2 mg Ibuprofen (Motrin Tab) 600 mg PO Q6H PRN PRN Reason: Headache Last Admin: 04/10/17 17:22 Dose: 600 mg Labetalol HCl (Trandate) 200 mg PO BID [facility] Last Admin: 04/10/17 17:18 Dose: 200 mg Mupirocin (Bactroban Ointment) 1 gm NS TID [facility] Stop: 04/10/17 18:01 Last Admin: 04/10/17 17:18 Dose: 1 dose Polyethylene Glycol (Miralax) 17 gm PO DAILY [facility] Last Admin: 04/10/17 11:46 Dose: Not Given Rivaroxaban (Xarelto) 15 mg PO DAILY [facility] PRN Reason: Protocol Last Admin: 04/10/17 11:48 Dose: 15 mg Sodium Chloride (Beach Nasal [place]) 3 ml NS Q4 [facility] Last Admin: 04/10/17 16:36 Dose: 1 dose - Labs Labs: 04/10/17 06:45 04/10/17 06:45 PT 10.6 Seconds (9.9-11.8) 04/08/17 09:50 INR 0.98 (0.93-1.08) 04/08/17 09:50 APTT 29.8 Seconds (23.7-30.8) 04/08/17 09:50 Attending/Attestation - Attestation I have personally seen and examined this patient.: Yes I have fully participated in the care of the patient.: Yes I have reviewed all pertinent clinical information, including history, physical exam and plan: Yes Notes (Text): I have seen and examined patient at bedside. I agree with the note dictated above with the following additions/ exceptions: Briefly this is 31 year old female with history of nasopharyngeal cancer s/p chemo and partial removal of the tumor, HTN, chronic anemia, history of PE on xeralto who was admitted for evaluation of syncope which is most likely due to nasopharyngeal cancer. MRI brain pending. ENT recommended nasal hygiene and advised to follow up in [facility]. There is a suspicion of sinusitis based on CT scan which can be due to fungus vs bacterial vs allergic. ID recommended to hold antibiotics until tissue diagnosis is obtained. Beta glucan and galactomannan tests are pending. There is a suspicion of opioid abuse. Counselling provided. Tobacco cessation counselling also provided. Dr Bruno Neil
[2017-04-08 10:16] LABS: INR 0.98 (0.93-1.08); PARTIAL THROMBOPLASTIN TIME 29.8 Seconds (23.7-30.8)
[2017-04-08] MEDS ORDERED: Gadodiamide 287 MG/ML VIAL (15ML) IV ONE (11:22)
[2017-04-08] MEDS: POLYETHYLENE GLYCOL 3350 17 GM/Dose PACKET PO SCH (12:06)
[2017-04-08] MEDS: Enoxaparin 40 mg Syringe SC SCH (12:06)
--- NOTE | 2017-04-08 13:27 | MRI ---
PROCEDURE: MRI BRAIN WITH AND WITHOUT CONTRAST HISTORY: dizziness/preston/sinusitus COMPARISON: None. TECHNIQUE: Multiplanar, multisequence MR images of the brain were obtained with and without intravenous contrast enhancement. 15 cc of Omniscan FINDINGS: HEMORRHAGE: None DWI: No evidence of an acute or early subacute infarction. BRAIN PARENCHYMA: No mass,mass effect or edema. No atrophy or chronic microvascular ischemic changes. ENHANCEMENT: No abnormal intracranial enhancement. VENTRICLES: Unremarkable. No hydrocephalus. CRANIUM: Unremarkable. ORBITS: Grossly unremarkable. PARANASAL SINUSES/MASTOIDS: There is opacification of the maxillary sinuses and partial opacification of the ethmoid and frontal sinuses. There has been previous surgery in the nasal cavity. There is also opacification of the mastoid air cells. VASCULAR SYSTEM: Skull base flow voids intact. OTHER FINDINGS: None . IMPRESSION: No acute intracranial findings. Sinusitis and mastoiditis
--- NOTE | 2017-04-08 15:49 | CP.PCM.PN ---
Subjective - Date & Time of Evaluation Date of Evaluation: 04/08/17 Time of Evaluation: 09:55 - Subjective Subjective: Still with pain in the nasal area, no fevers overnight, not in distress. Objective - Vital Signs/Intake and Output Vital Signs (last 24 hours): Temp Pulse Resp BP Pulse Ox 99 F 70 20 132/74 99 04/08/17 08:46 04/08/17 08:46 04/08/17 08:46 04/08/17 12:06 04/08/17 08:46 Intake and Output: 04/08/17 04/08/17 06:59 18:59 Intake Total 740 1040 Balance 740 1040 - Medications Medications: Current Medications Amlodipine Besylate (Norvasc) 2.5 mg PO DAILY [facility] Last Admin: 04/08/17 12:06 Dose: 2.5 mg Diphenhydramine HCl (Benadryl) 25 mg IVP Q6H PRN PRN Reason: itchiness Last Admin: 04/08/17 09:42 Dose: 25 mg Docusate Sodium (Colace) 100 mg PO BID [facility] Last Admin: 04/08/17 12:05 Dose: 100 mg Enoxaparin Sodium (Lovenox) 40 mg SC DAILY [facility] PRN Reason: Protocol Last Admin: 04/08/17 12:06 Dose: 40 mg Famotidine (Pepcid) 20 mg PO BID [facility] Last Admin: 04/08/17 12:06 Dose: 20 mg Hydromorphone HCl (Dilaudid) 2 mg IVP Q4H [facility] Last Admin: 04/08/17 09:44 Dose: 2 mg Ceftriaxone Sodium (Rocephin 1 Gram Ivpb) 1 gm in 100 mls @ 100 mls/hr IVPB DAILY [facility] Last Admin: 04/07/17 10:00 Dose: Not Given Fluconazole (Diflucan Iv 200 Mg/100 Ml Ns) 100 mls @ 100 mls/hr IVPB DAILY [facility] PRN Reason: Protocol Last Admin: 04/07/17 10:36 Dose: 100 mls/hr Labetalol HCl (Trandate) 200 mg PO BID [facility] Last Admin: 04/08/17 12:07 Dose: 200 mg Mupirocin (Bactroban Ointment) 1 gm NS TID [facility] Stop: 04/10/17 18:01 Last Admin: 04/08/17 12:03 Dose: 1 dose Polyethylene Glycol (Miralax) 17 gm PO DAILY [facility] Last Admin: 04/08/17 12:06 Dose: 17 gm Sodium Chloride ([place] Nasal [place]) 3 ml NS Q4 [facility] Last Admin: 04/08/17 04:13 Dose: 1 dose - Labs Labs: 04/08/17 07:00 04/08/17 07:00 PT 10.6 Seconds (9.9-11.8) 04/08/17 09:50 INR 0.98 (0.93-1.08) 04/08/17 09:50 APTT 29.8 Seconds (23.7-30.8) 04/08/17 09:50 - Constitutional Appears: Non-toxic, No Acute Distress - Head Exam Head Exam: NORMAL INSPECTION - Neck Exam Neck Exam: absent: Meningismus - Respiratory Exam Respiratory Exam: Decreased Breath Sounds - Cardiovascular Exam Cardiovascular Exam: +S1, +S2 - GI/Abdominal Exam GI & Abdominal Exam: Soft. 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
[2017-04-09] MEDS: DiphenhydrAMINE 50 mg/ml Inj IVP PRN ×4 (01:28→20:49)
[2017-04-09] MEDS: HYDROmorphone 2 mg/ml ISec IVP SCH ×4 (01:29→13:49)
[2017-04-09 07:34] LABS: ADD MANUAL DIFF? NO
[2017-04-09 07:43] LABS: BASO # 0.02 K/mm3 (0.0-2.0); BASO % 0.7 % (0.0-3.0); EOS # 0.2 (0.0-0.7); EOS % 6.5 % (1.5-5.0); GRAN # 1.94 (1.4-6.5); GRAN % 63.2 % (50.0-68.0); HEMATOCRIT 29.1 % (36.0-48.0); LYMPH # 0.6 (1.2-3.4); LYMPH % 20.8 % (22.0-35.0); MEAN CELL VOLUME 87.4 fL (80.0-105.0); MEAN CORPUSCULAR HEMOGLOBIN 27.6 pg (25.0-35.0); MEAN CORPUSCULAR HGB CONC 31.6 g/dl (31.0-37.0); MEAN PLATELET VOLUME 10.4 fl (7.0-11.0); MONO # 0.3 (0.1-0.6); MONO % 8.8 % (1.0-6.0); PLATELET COUNT 239 10^3/uL (120.0-450.0); RED CELL DISTRIBUTION WIDTH 16.2 % (11.5-14.5); RETIC% 1.67 % (0.5-1.5); WHITE BLOOD COUNT 3.1 10^3/ul (4.5-11.0)
[2017-04-09 07:56] LABS: IRON 56 ug/dL (45-180)
[2017-04-09 08:32] LABS: ALB/GLOB RATIO 1.5 (1.1-1.8); ALKALINE PHOSPHATASE 65 U/L (38-133); ALT/SGPT 29 U/L (7-56); AST/SGOT 15 U/L (15-39); BILIRUBIN,TOTAL 0.2 mg/dL (0.2-1.3); BLOOD UREA NITROGEN 10 mg/dL (7-21); CALCIUM 9.7 mg/dL (8.4-10.5); CARBON DIOXIDE 23 mmol/L (21-33); CHLORIDE 108 mmol/L (98-107); GFR AFRICAN-AMERICAN > 60; GLUCOSE,RANDOM 71 mg/dL (70-110); POTASSIUM 4.2 mmol/L (3.6-5.0); SODIUM 139 mmol/L (132-148); TOTAL PROTEIN 5.8 g/dL (5.8-8.3)
[2017-04-09] MEDS: POLYETHYLENE GLYCOL 3350 17 GM/Dose PACKET PO SCH (09:10)
[2017-04-09 09:40] LABS: THYROID STIMULATING HORMONE 0.07 mIU/mL (0.46-4.68)
--- NOTE | 2017-04-09 11:32 | CARD ---
APPROVED REPORT EXAM: Two-dimensional and M-mode echocardiogram with Doppler and color Doppler. Other Information Quality : AverageRhythm : INDICATION Evaluate LV fx. 2D DIMENSIONS IVSd1.2 (0.7-1.1cm)LVDd5.7 (3.9-5.9cm) PWd1.2 (0.7-1.1cm)LVDs3.6 (2.5-4.0cm) FS (%) 37.3 %LVEF (%)66.0 (>50%) M-Mode DIMENSIONS Left Atrium (MM)3.40 (2.5-4.0cm)Aortic Root3.10 (2.2-3.7cm) Aortic Cusp Exc.2.10 (1.5-2.0cm) Aortic Valve AoV Peak Ugvabqhm304.0cm/s Mitral Valve MV E Ivrnmtfg94.5cm/sMV A Rfqafrsq75.8cm/sE/A ratio1.4 TDI Lateral E' Peak V9.65cm/sMedial E' Peak V5.75cm/sE/Lateral E'8.3 E/Medial E'14.0 Tricuspid Valve TR Peak [id number]/sRAP [id number] Peak Gr.18mmHg [id number] LEFT VENTRICLE The left ventricle is normal size. There is normal left ventricular wall thickness. The left ventricular function is normal. The left ventricular ejection fraction is within the normal range. There is normal LV segmental wall motion. RIGHT VENTRICLE The right ventricle is normal size. ATRIA The left atrium size is normal. The right atrium size is normal. The interatrial septum is intact with no evidence for an atrial septal defect. AORTIC VALVE The aortic valve is normal in structure. MITRAL VALVE The mitral valve is normal in structure. Mitral regurgitation is trace. TRICUSPID VALVE The tricuspid valve is normal in structure. There is trace tricuspid regurgitation. PULMONIC VALVE The pulmonic valve is not well visualized. GREAT VESSELS The aortic root is normal in size. PERICARDIAL EFFUSION There is no pericardial effusion. <Conclusion> The left ventricle is normal size. There is normal left ventricular wall thickness. The left ventricular function is normal.
[2017-04-09 13:43] LABS: FOLATE > 20.0 ng/mL
--- NOTE | 2017-04-09 13:46 | CP.PCM.PN ---
<Saji Palafox - Last Filed: 04/09/17 13:41> Subjective - Date & Time of Evaluation Date of Evaluation: 04/09/17 Time of Evaluation: 13:42 - Subjective Subjective: Patient seen at bedside. She is complaining of discomfort around her mandible as well as to maxillary and mastoid area. She is also complaining of a cough. She is afebrile. Denies headache. Objective - Vital Signs/Intake and Output Vital Signs (last 24 hours): Temp Pulse Resp BP Pulse Ox 98.8 F 80 18 143/102 H 100 04/09/17 06:00 04/09/17 09:10 04/09/17 06:00 04/09/17 09:15 04/09/17 06:00 Intake and Output: 04/09/17 04/09/17 06:59 18:59 Intake Total 240 Balance 240 - Medications Medications: Current Medications Amlodipine Besylate (Norvasc) 2.5 mg PO DAILY [facility] Last Admin: 04/09/17 09:15 Dose: 2.5 mg Benzonatate (Tessalon Perles) 100 mg PO TID [facility] Last Admin: 04/09/17 13:11 Dose: 100 mg Diphenhydramine HCl (Benadryl) 25 mg IVP Q6H PRN PRN Reason: itchiness Last Admin: 04/09/17 09:15 Dose: 25 mg Docusate Sodium (Colace) 100 mg PO BID [facility] Last Admin: 04/09/17 09:10 Dose: 100 mg Famotidine (Pepcid) 20 mg PO BID [facility] Last Admin: 04/09/17 09:10 Dose: 20 mg Hydromorphone HCl (Dilaudid) 2 mg IVP Q4H [facility] Last Admin: 04/09/17 09:44 Dose: 2 mg Ibuprofen (Motrin Tab) 600 mg PO Q6H PRN PRN Reason: Headache Last Admin: 04/08/17 20:23 Dose: 600 mg Labetalol HCl (Trandate) 200 mg PO BID [facility] Last Admin: 04/09/17 09:10 Dose: 200 mg Mupirocin (Bactroban Ointment) 1 gm NS TID [facility] Stop: 04/10/17 18:01 Last Admin: 04/09/17 09:15 Dose: 1 dose Polyethylene Glycol (Miralax) 17 gm PO DAILY [facility] Last Admin: 04/09/17 09:10 Dose: 17 gm Rivaroxaban (Xarelto) 15 mg PO DAILY [facility] PRN Reason: Protocol Last Admin: 04/09/17 09:10 Dose: 15 mg Sodium Chloride ([place] Nasal [place]) 3 ml NS Q4 [facility] Last Admin: 04/09/17 09:09 Dose: 1 dose - Labs Labs: 04/09/17 07:32 04/09/17 07:00 PT 10.6 Seconds (9.9-11.8) 04/08/17 09:50 INR 0.98 (0.93-1.08) 04/08/17 09:50 APTT 29.8 Seconds (23.7-30.8) 04/08/17 09:50 - Constitutional Appears: Non-toxic, No Acute Distress - Head Exam Head Exam: ATRAUMATIC, NORMOCEPHALIC Additional comments: tenderness to mastoid area on palpation - Eye Exam Eye Exam: EOMI, PERRL - ENT Exam ENT Exam: Mucous Membranes Moist - Neck Exam Neck Exam: Full ROM - Respiratory Exam Respiratory Exam: Clear to Ausculation Bilateral. absent: Rales, Rhonchi, Wheezes - Cardiovascular Exam Cardiovascular Exam: REGULAR RHYTHM, +S1, +S2 - GI/Abdominal Exam GI & Abdominal Exam: Soft, Normal Bowel Sounds. absent: Tenderness - Extremities Exam Extremities Exam: absent: Calf Tenderness, Pedal Edema - Neurological Exam Neurological Exam: Alert, Awake, Oriented x3 - Skin Skin Exam: Normal Color, Warm Assessment and Plan - Assessment and Plan (Free Text) Assessment: 31 F with a PMHx of Nasopharyngeal Carcinoma, still currently under treatment ( radiation and chemotherapy) and HTN admitted for Syncopal episode. Antibiotics held at this time. Awaiting fungal specific labs. ID is following. Syncope -most likely related to nasopharyngeal CA; already known as metastatic -Brain MRI w/ and w/o contrast f/u results, pt unable to tolerate MRI due to claustrophobia - will retry today -please refer to CT scan reports for complete report Anemia - Hgb dropped 10.1 -> 8.7, no active signs of bleeding - will fu with anemia workup and coags Sinusitus Bacterial vs fungal - ID consulted, Dr. Soto recommended to hold abx until tissue diagnosis and fu with specific labs - ENT consulted, Dr. Tucker, recommend nasal hygiene and bactroban to nares - MRI demonstrated sinusitis and mastoiditis Nasopharyngeal carcinoma - under treatment - radiation and chemotherapy - will fu with MRI for possible mets - dilaudid for pain control HTN - Stable - continue home meds Hx PE - pt reports taking xarelto at home, will restart Tobacco abuse - counselled on tobacco cessation - offer nicotine patch Constipation - 2/2 opiates - miralax colace Prophylaxis Protonix Lovenox Regular Diet <Bruno Neil B - Last Filed: 04/10/17 18:03> Objective - Vital Signs/Intake and Output Vital Signs (last 24 hours): Temp Pulse Resp BP Pulse Ox 99.6 F 79 19 142/98 H 100 04/10/17 17:00 04/10/17 17:00 04/10/17 17:00 04/10/17 17:18 04/10/17 17:00 Intake and Output: 04/10/17 04/10/17 06:59 18:59 Intake Total 540 Balance 540 - Medications Medications: Current Medications Amlodipine Besylate (Norvasc) 5 mg PO DAILY [facility] Benzonatate (Tessalon Perles) 100 mg PO TID [facility] Last Admin: 04/10/17 14:26 Dose: 100 mg Diphenhydramine HCl (Benadryl) 25 mg IVP Q6H PRN PRN Reason: itchiness Last Admin: 04/10/17 12:46 Dose: 25 mg Docusate Sodium (Colace) 100 mg PO BID [facility] Last Admin: 04/10/17 17:18 Dose: 100 mg Famotidine (Pepcid) 20 mg PO BID [facility] Last Admin: 04/10/17 17:18 Dose: 20 mg Hydromorphone HCl (Dilaudid) 2 mg IVP Q4H PRN PRN Reason: Pain, severe (8-10) Last Admin: 04/10/17 16:37 Dose: 2 mg Ibuprofen (Motrin Tab) 600 mg PO Q6H PRN PRN Reason: Headache Last Admin: 04/10/17 17:22 Dose: 600 mg Labetalol HCl (Trandate) 200 mg PO BID [facility] Last Admin: 04/10/17 17:18 Dose: 200 mg Mupirocin (Bactroban Ointment) 1 gm NS TID [facility] Stop: 04/10/17 18:01 Last Admin: 04/10/17 17:18 Dose: 1 dose Polyethylene Glycol (Miralax) 17 gm PO DAILY [facility] Last Admin: 04/10/17 11:46 Dose: Not Given Rivaroxaban (Xarelto) 15 mg PO DAILY [facility] PRN Reason: Protocol Last Admin: 04/10/17 11:48 Dose: 15 mg Sodium Chloride ([place] Nasal [place]) 3 ml NS Q4 [facility] Last Admin: 04/10/17 16:36 Dose: 1 dose - Labs Labs: 04/10/17 06:45 04/10/17 06:45 PT 10.6 Seconds (9.9-11.8) 04/08/17 09:50 INR 0.98 (0.93-1.08) 04/08/17 09:50 APTT 29.8 Seconds (23.7-30.8) 04/08/17 09:50 Attending/Attestation - Attestation I have personally seen and examined this patient.: Yes I have fully participated in the care of the patient.: Yes I have reviewed all pertinent clinical information, including history, physical exam and plan: Yes Notes (Text): I have seen and examined patient at bedside. I agree with the note dictated above with the following additions/ exceptions: Briefly this is 31 year old female with history of nasopharyngeal cancer s/p chemo and partial removal of the tumor, HTN, chronic anemia, history of PE on xeralto who was admitted for evaluation of syncope which is most likely due to transient cerberal hypoperfusion due to nasopharyngeal cancer vs opioid use. ENT recommended nasal hygiene and advised to follow up in [facility]. There is a suspicion of sinusitis which can be due to fungus vs bacterial vs allergic. ID recommended to hold antibiotics until tissue diagnosis is obtained. Beta glucan and galactomannan tests are pending. She has subclinical hyperthyroidism. There is a suspicion of opioid abuse. Counselling provided. Tobacco cessation counselling also provided. Dr Bruno Neil
[2017-04-09] MEDS: HYDROmorphone 2 mg/ml ISec IVP PRN ×2 (17:29→20:49)
[2017-04-09 18:11] LABS: TRANSFERRIN 187.11 mg/dL (206-381)
--- NOTE | 2017-04-09 18:36 | PN ---
DATE: 04/09/2017 The patient is in bed in no acute distress, nontoxic. PHYSICAL EXAMINATION: VITAL SIGNS: Temperature is 98, blood pressure is 120/70, respiratory rate of 18. HEENT: Unremarkable. NECK: Supple. LUNGS: Have decreased breath sounds. HEART: Normal S1, S2. ABDOMEN: Soft. LABORATORY DATA: Reveals a white count of 3.1, hemoglobin of 9, platelets of 239. BUN of 10, creati nine of 0.8. Urinalysis is noted. HIV is negative. Microbiology reveals the blood cultures are nega tive. Urine cultures have multiple contamination. note is reviewed from today. ASSESSMENT AND PLAN: A 31-year-old female with history of nasopharyngeal cancer status post chemothe rapy 6 weeks, partial removal of tumor with hypertension, chronic anemia, off of antibiotics. Should have ENT reevaluate. I discussed with the patient today and she is allowing for ENT for a procedure regarding tissue diagnosis. Champ Soto MD cc: [id number] TT: 04/09/2017 18:35:31 Confirmation # [id number] Dictation # [id number]
[2017-04-10] MEDS: DiphenhydrAMINE 50 mg/ml Inj IVP PRN ×4 (00:38→20:43)
[2017-04-10] MEDS: HYDROmorphone 2 mg/ml ISec IVP PRN ×6 (00:39→20:43)
[2017-04-10] MEDS ORDERED: HYDROmorphone 0.5 mg/0.5 ml ISec IVP ONE (03:01)
--- NOTE | 2017-04-10 07:24 | CP.PCM.PN ---
<Danielle Almeida - Last Filed: 04/10/17 13:50> Subjective - Date & Time of Evaluation Date of Evaluation: 04/10/17 Time of Evaluation: 09:40 - Subjective Subjective: Pt was seen and examined at bedside. Mild complaints of cough with yellow sputum. No acute events overnight as per nursing staff. Pt reported a bm last night. Pt tolerating diet well. Pt denied fever, chills, sob, chest pains, abdominal pains, n/v/d/c. Objective - Vital Signs/Intake and Output Vital Signs (last 24 hours): Temp Pulse Resp BP Pulse Ox 99.1 F 82 19 127/76 100 04/09/17 18:00 04/09/17 22:00 04/09/17 18:00 04/09/17 18:00 04/09/17 18:00 Intake and Output: 04/10/17 04/10/17 06:59 18:59 Intake Total 540 Balance 540 - Medications Medications: Current Medications Amlodipine Besylate (Norvasc) 2.5 mg PO DAILY [facility] Last Admin: 04/09/17 09:15 Dose: 2.5 mg Benzonatate (Tessalon Perles) 100 mg PO TID [facility] Last Admin: 04/09/17 17:16 Dose: 100 mg Diphenhydramine HCl (Benadryl) 25 mg IVP Q6H PRN PRN Reason: itchiness Last Admin: 04/10/17 05:03 Dose: 25 mg Docusate Sodium (Colace) 100 mg PO BID [facility] Last Admin: 04/09/17 17:16 Dose: 100 mg Famotidine (Pepcid) 20 mg PO BID [facility] Last Admin: 04/09/17 17:16 Dose: 20 mg Hydromorphone HCl (Dilaudid) 2 mg IVP Q4H PRN PRN Reason: Pain, severe (8-10) Last Admin: 04/10/17 04:58 Dose: 2 mg Ibuprofen (Motrin Tab) 600 mg PO Q6H PRN PRN Reason: Headache Last Admin: 04/09/17 16:23 Dose: 600 mg Labetalol HCl (Trandate) 200 mg PO BID [facility] Last Admin: 04/09/17 17:17 Dose: 200 mg Mupirocin (Bactroban Ointment) 1 gm NS TID [facility] Stop: 04/10/17 18:01 Last Admin: 04/09/17 19:54 Dose: 1 dose Polyethylene Glycol (Miralax) 17 gm PO DAILY [facility] Last Admin: 04/09/17 09:10 Dose: 17 gm Rivaroxaban (Xarelto) 15 mg PO DAILY [facility] PRN Reason: Protocol Last Admin: 04/09/17 09:10 Dose: 15 mg Sodium Chloride ([place] Nasal [place]) 3 ml NS Q4 [facility] Last Admin: 04/10/17 04:58 Dose: 1 dose - Labs Labs: 04/09/17 07:32 04/09/17 07:00 PT 10.6 Seconds (9.9-11.8) 04/08/17 09:50 INR 0.98 (0.93-1.08) 04/08/17 09:50 APTT 29.8 Seconds (23.7-30.8) 04/08/17 09:50 - Constitutional Appears: No Acute Distress - Head Exam Head Exam: ATRAUMATIC, NORMAL INSPECTION, NORMOCEPHALIC - Eye Exam Eye Exam: EOMI, Normal appearance, PERRL Pupil Exam: Fixed - ENT Exam ENT Exam: Mucous Membranes Dry - Respiratory Exam Respiratory Exam: Clear to Ausculation Bilateral, NORMAL BREATHING PATTERN - Cardiovascular Exam Cardiovascular Exam: REGULAR RHYTHM, +S1, +S2. absent: Murmur - GI/Abdominal Exam GI & Abdominal Exam: Soft, Normal Bowel Sounds. absent: Tenderness - Extremities Exam Extremities Exam: Full ROM, Normal Capillary Refill, Normal Inspection. absent : Joint Swelling, Pedal Edema - Back Exam Back Exam: NORMAL INSPECTION - Neurological Exam Neurological Exam: Alert, Awake, CN II-XII Intact, Normal Gait, Oriented x3 - Psychiatric Exam Psychiatric exam: Normal Affect, Normal Mood - Skin Skin Exam: Dry, Intact, Normal Color, Warm Assessment and Plan - Assessment and Plan (Free Text) Assessment: 31 F with a PMHx of Nasopharyngeal Carcinoma, still currently under treatment ( radiation and chemotherapy) and HTN admitted for Syncopal episode. Antibiotics held at this time. Awaiting fungal specific labs. ID is following. Will discuss possibility to biopsy sinus by ENT will hold off on abx until then. Syncope -most likely related to nasopharyngeal CA; already known as metastatic -Brain MRI w/ and w/o contrast demonstrated sinusitis and mastoiditis -No further episodes Anemia - Hgb dropped trending up, no active signs of bleeding - will fu with anemia workup and coags Sinusitus Bacterial vs fungal - ID consulted, Dr. Soto recommended to hold abx until tissue diagnosis and fu with specific labs - ENT consulted, Dr. Tucker, recommend nasal hygiene and bactroban to nares - MRI demonstrated sinusitis and mastoiditis Nasopharyngeal carcinoma - under treatment - radiation and chemotherapy - dilaudid for pain control HTN - Stable - continue home meds Hx PE - pt reports taking xarelto at home, restarted 15mg daily Tobacco abuse - counselled on tobacco cessation - offer nicotine patch Constipation - 2/2 opiates - miralax colace - had bm yesterday Prophylaxis Protonix Lovenox Regular Diet <Bruno Neil - Last Filed: 04/10/17 18:07> Objective - Vital Signs/Intake and Output Vital Signs (last 24 hours): Temp Pulse Resp BP Pulse Ox 99.6 F 79 19 142/98 H 100 04/10/17 17:00 04/10/17 17:00 04/10/17 17:00 04/10/17 17:18 04/10/17 17:00 Intake and Output: 04/10/17 04/10/17 06:59 18:59 Intake Total 540 Balance 540 - Medications Medications: Current Medications Amlodipine Besylate (Norvasc) 5 mg PO DAILY [facility] Benzonatate (Tessalon Perles) 100 mg PO TID [facility] Last Admin: 04/10/17 14:26 Dose: 100 mg Diphenhydramine HCl (Benadryl) 25 mg IVP Q6H PRN PRN Reason: itchiness Last Admin: 04/10/17 12:46 Dose: 25 mg Docusate Sodium (Colace) 100 mg PO BID [facility] Last Admin: 04/10/17 17:18 Dose: 100 mg Famotidine (Pepcid) 20 mg PO BID [facility] Last Admin: 04/10/17 17:18 Dose: 20 mg Hydromorphone HCl (Dilaudid) 2 mg IVP Q4H PRN PRN Reason: Pain, severe (8-10) Last Admin: 04/10/17 16:37 Dose: 2 mg Ibuprofen (Motrin Tab) 600 mg PO Q6H PRN PRN Reason: Headache Last Admin: 04/10/17 17:22 Dose: 600 mg Labetalol HCl (Trandate) 200 mg PO BID [facility] Last Admin: 04/10/17 17:18 Dose: 200 mg Polyethylene Glycol (Miralax) 17 gm PO DAILY [facility] Last Admin: 04/10/17 11:46 Dose: Not Given Rivaroxaban (Xarelto) 15 mg PO DAILY [facility] PRN Reason: Protocol Last Admin: 04/10/17 11:48 Dose: 15 mg Sodium Chloride ([place] Nasal [place]) 3 ml NS Q4 [facility] Last Admin: 04/10/17 16:36 Dose: 1 dose - Labs Labs: 04/10/17 06:45 04/10/17 06:45 PT 10.6 Seconds (9.9-11.8) 04/08/17 09:50 INR 0.98 (0.93-1.08) 04/08/17 09:50 APTT 29.8 Seconds (23.7-30.8) 04/08/17 09:50 Attending/Attestation - Attestation I have personally seen and examined this patient.: Yes I have fully participated in the care of the patient.: Yes I have reviewed all pertinent clinical information, including history, physical exam and plan: Yes Notes (Text): I have seen and examined patient at bedside. I agree with the note dictated above with the following additions/ exceptions: Briefly this is 31 year old female with history of nasopharyngeal cancer s/p chemo and partial removal of the tumor, HTN, chronic anemia, history of PE on xeralto who was admitted for evaluation of syncope which is most likely due to transient cerbral hypoperfusion due to nasopharyngeal cancer vs opioid use. ENT recommended nasal hygiene and advised to follow up in [facility]. There is a suspicion of sinusitis which can be due to fungus vs bacterial vs allergic. ID recommended to hold antibiotics until tissue diagnosis is obtained. ENT was re consulted today and they recommended CT sinuses and possible biopsy later in this week. Patient is on xeralto. Half life is 5-9 hours. Will hold prior to biopsy. Beta glucan and galactomannan tests are pending. She has subclinical hyperthyroidism. There is a suspicion of opioid abuse. Counselling provided. Tobacco cessation counselling also provided. Dr Bruno Neil
[2017-04-10 07:47] LABS: ADD MANUAL DIFF? NO
[2017-04-10 07:56] LABS: BASO # 0.02 K/mm3 (0.0-2.0); BASO % 0.6 % (0.0-3.0); EOS # 0.2 (0.0-0.7); EOS % 6.8 % (1.5-5.0); GRAN # 2.24 (1.4-6.5); GRAN % 63.5 % (50.0-68.0); HEMATOCRIT 28.9 % (36.0-48.0); LYMPH # 0.7 (1.2-3.4); LYMPH % 19.8 % (22.0-35.0); MEAN CELL VOLUME 87.8 fL (80.0-105.0); MEAN CORPUSCULAR HEMOGLOBIN 27.7 pg (25.0-35.0); MEAN CORPUSCULAR HGB CONC 31.5 g/dl (31.0-37.0); MEAN PLATELET VOLUME 10.4 fl (7.0-11.0); MONO # 0.3 (0.1-0.6); MONO % 9.3 % (1.0-6.0); PLATELET COUNT 261 10^3/uL (120.0-450.0); WHITE BLOOD COUNT 3.5 10^3/ul (4.5-11.0)
[2017-04-10 08:44] LABS: ALB/GLOB RATIO 1.5 (1.1-1.8); ALKALINE PHOSPHATASE 67 U/L (38-133); ALT/SGPT 27 U/L (7-56); AST/SGOT 13 U/L (15-39); BILIRUBIN,TOTAL 0.2 mg/dL (0.2-1.3); BLOOD UREA NITROGEN 12 mg/dL (7-21); CALCIUM 9.6 mg/dL (8.4-10.5); CARBON DIOXIDE 25 mmol/L (21-33); CHLORIDE 106 mmol/L (98-107); GFR AFRICAN-AMERICAN > 60; GLUCOSE,RANDOM 65 mg/dL (70-110); POTASSIUM 4.4 mmol/L (3.6-5.0); SODIUM 139 mmol/L (132-148); TOTAL PROTEIN 5.9 g/dL (5.8-8.3)
[2017-04-10 09:10] LABS: THYROID STIMULATING HORMONE < 0.02 mIU/mL (0.46-4.68)
[2017-04-10 09:12] LABS: FREE T4 1.01 ng/dL (0.78-2.19)
[2017-04-10] MEDS: POLYETHYLENE GLYCOL 3350 17 GM/Dose PACKET PO SCH (11:46)
--- NOTE | 2017-04-10 15:19 | PN ---
DATE: 04/10/2017 SUBJECTIVE: The patient is seen and examined at bedside. The patient continues to complain of a ban d-like frontal headache and pain over her face and over her sinuses. 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 She a lso states that the facial pain has not gone away since being admitted. She also states her dizzines s and headaches has not progressed since being admitted. She denies any fevers, chills, chest pain a nd shortness of breath. She also admits to a green yellow discharge from her nose. The patient is u nder the impression that she will be undergoing a needle biopsy tomorrow; however, the patient was to ld that there is no current scheduling planned for her to undergo biopsy tomorrow. The patient was a lso adamant that she does not wish to have a fiberoptic direct laryngoscopy at the bedside at this mo ment; however, she is willing to undergo a fiberoptic laryngoscopy in the operating room if she is as leep. PHYSICAL EXAMINATION: VITAL SIGNS: Temperature 98.7, pulse rate 79, blood pressure 137/100, respirations 17, oxygen satura tion 100% on room air. GENERAL: Awake, alert, oriented x 3, in no acute distress and some mild pain. FACE: She reports hypesthesia to light touch of the entire left face compared to the right face. Sh e does not have any fluid collections or induration to the left face. EYES: Extraocular movements intact. Right pupil equal, round and reactive to light. Left pupil slu ggish and reactive to light. She reports that this is a chronic issue. EARS: External auricles are unremarkable. NOSE: Is patent, no current discharge, no epistaxis. The patient was refusing a nasal endoscopy at this moment. ORAL CAVITY AND OROPHARYNX: Lips and buccal mucosa are unremarkable. Tongue is mobile and midline, uvula midline. NECK: Soft, nontender. Trachea midline. No lymphadenopathy. LABORATORY DATA: White count of 3.5, hemoglobin 9.1, hematocrit 28.9, platelets of 261. Sodium 139, potassium 4.4, chloride 106, CO2 of 25, BUN 12, creatinine 0.7, AST 13, ALT 27. There are 2 blood c ultures from 04/06 that are negative after 3 days. ASSESSMENT AND PLAN: This is a 31-year-old female with a history of nasopharyngeal carcinoma, status post functional endoscopic sinus surgery and debridement in October and also status post chemoradiat ion therapy, who is now admitted for syncope and headaches. PLAN: 1. Discussed with the patient that nasal biopsy will not be occurring tomorrow as this was not previ ously scheduled with the ENT service. 2. At this point, I would recommend repeating the CAT scan of the sinuses as the current imaging rodriguez s not show the entire sinuses. 3. Would recommend treating this patient for a bacterial sinusitis as the patient does states she preston s green discharge and facial pain. 4. There is a question to whether this patient has fungal sinusitis; however, there is no evidence o f this on the current radiological examinations. 5. The fungal labs including Fungitell and Aspergillus are pending. We will follow these up. 6. Based on the new CAT scan will discuss the possibility of a nasal endoscopy with biopsy in the op erating room at the earliest sometime midweek; however, this is pending results of the CAT scan. 7. Management per primary team. Sravan Castaneda DO cc: [id number] TT: 04/10/2017 15:17:56 Confirmation # [id number] Dictation # [id number] [email or web address]
--- NOTE | 2017-04-10 17:51 | PN ---
DATE: 04/10/2017 The patient is in bed. No acute distress, nontoxic, was seen earlier this morning in room 377, bed 2 . Continues to have headaches on and off, appears to be comfortable, no acute distress. Review of o rders reveals the patient to be off of antibiotics. ASSESSMENT AND PLAN: A 31-year-old female with a history of nasopharyngeal cancer status post chemot herapy is now for 6 weeks, partial removal of a tumor, a history of hypertension, chronic anemia, off of the antibiotics for mastoiditis and sinusitis, possibility of a fungal sinusitis. Case discussed with Dr. Neil and will discuss with ENT. Will follow closely with you. Champ Soto MD cc: [id number] TT: 04/10/2017 17:50:40 Confirmation # [id number] Dictation # [id number] mn
[2017-04-11] MEDS: HYDROmorphone 2 mg/ml ISec IVP PRN ×6 (00:45→21:37)
[2017-04-11] MEDS: DiphenhydrAMINE 50 mg/ml Inj IVP PRN ×3 (04:56→17:27)
[2017-04-11 08:22] LABS: ADD MANUAL DIFF? NO
[2017-04-11 08:29] LABS: BASO # 0.01 K/mm3 (0.0-2.0); BASO % 0.3 % (0.0-3.0); EOS # 0.2 (0.0-0.7); EOS % 7.6 % (1.5-5.0); GRAN # 1.78 (1.4-6.5); GRAN % 58.5 % (50.0-68.0); HEMATOCRIT 29.3 % (36.0-48.0); LYMPH # 0.7 (1.2-3.4); LYMPH % 22.4 % (22.0-35.0); MEAN CELL VOLUME 87.2 fL (80.0-105.0); MEAN CORPUSCULAR HEMOGLOBIN 27.7 pg (25.0-35.0); MEAN CORPUSCULAR HGB CONC 31.7 g/dl (31.0-37.0); MEAN PLATELET VOLUME 10.6 fl (7.0-11.0); MONO # 0.3 (0.1-0.6); MONO % 11.2 % (1.0-6.0); PLATELET COUNT 269 10^3/uL (120.0-450.0); RED CELL DISTRIBUTION WIDTH 16.1 % (11.5-14.5)
--- NOTE | 2017-04-11 09:38 | CP.PCM.PN ---
<Danielle Almeida - Last Filed: 04/11/17 14:30> Subjective - Date & Time of Evaluation Date of Evaluation: 04/11/17 Time of Evaluation: 09:00 - Subjective Subjective: Pt was seen and examined at bedside. Pt was requiring new IV access. New access established. Pt has mild complaints of a headache this morning. Pt otherwise has no new complaints. Pt is tolerating diet and is ambulating. Pt states that she had a bm yesterday. Pt denied fever, chills, sob, chest pains, abdominal pains, n/v/d/c or urinary symptoms. Objective - Vital Signs/Intake and Output Vital Signs (last 24 hours): Temp Pulse Resp BP Pulse Ox 99.6 F 79 19 142/98 H 100 04/10/17 17:00 04/10/17 17:00 04/10/17 17:00 04/10/17 17:18 04/10/17 17:00 Intake and Output: 04/11/17 04/11/17 06:59 18:59 Intake Total 780 Balance 780 - Medications Medications: Current Medications Amlodipine Besylate (Norvasc) 5 mg PO DAILY [facility] Benzonatate (Tessalon Perles) 100 mg PO TID [facility] Last Admin: 04/10/17 14:26 Dose: 100 mg Diphenhydramine HCl (Benadryl) 25 mg IVP Q6H PRN PRN Reason: itchiness Last Admin: 04/11/17 04:56 Dose: 25 mg Docusate Sodium (Colace) 100 mg PO BID [facility] Last Admin: 04/10/17 17:18 Dose: 100 mg Famotidine (Pepcid) 20 mg PO BID [facility] Last Admin: 04/10/17 17:18 Dose: 20 mg Hydromorphone HCl (Dilaudid) 2 mg IVP Q4H PRN PRN Reason: Pain, severe (8-10) Last Admin: 04/11/17 09:13 Dose: 2 mg Ibuprofen (Motrin Tab) 600 mg PO Q6H PRN PRN Reason: Headache Last Admin: 04/10/17 17:22 Dose: 600 mg Labetalol HCl (Trandate) 200 mg PO BID [facility] Last Admin: 04/10/17 17:18 Dose: 200 mg Polyethylene Glycol (Miralax) 17 gm PO DAILY [facility] Last Admin: 04/10/17 11:46 Dose: Not Given Rivaroxaban (Xarelto) 15 mg PO DAILY [facility] PRN Reason: Protocol Last Admin: 04/10/17 11:48 Dose: 15 mg Sodium Chloride ([place] Nasal [place]) 3 ml NS Q4 [facility] Last Admin: 04/10/17 21:47 Dose: Not Given - Labs Labs: 04/11/17 08:00 04/10/17 06:45 PT 10.6 Seconds (9.9-11.8) 04/08/17 09:50 INR 0.98 (0.93-1.08) 04/08/17 09:50 APTT 29.8 Seconds (23.7-30.8) 04/08/17 09:50 - Constitutional Appears: No Acute Distress - Head Exam Head Exam: ATRAUMATIC, NORMAL INSPECTION, NORMOCEPHALIC - Eye Exam Eye Exam: EOMI, Normal appearance, PERRL Pupil Exam: NORMAL ACCOMODATION, PERRL - ENT Exam ENT Exam: Mucous Membranes Dry - Respiratory Exam Respiratory Exam: Clear to Ausculation Bilateral, NORMAL BREATHING PATTERN - Cardiovascular Exam Cardiovascular Exam: REGULAR RHYTHM, +S1, +S2. absent: Murmur - GI/Abdominal Exam GI & Abdominal Exam: Soft, Normal Bowel Sounds. absent: Tenderness - Extremities Exam Extremities Exam: Full ROM, Normal Capillary Refill, Normal Inspection. absent : Joint Swelling, Pedal Edema - Back Exam Back Exam: NORMAL INSPECTION - Neurological Exam Neurological Exam: Alert, Awake, CN II-XII Intact, Normal Gait, Oriented x3 - Psychiatric Exam Psychiatric exam: Agitated - Skin Skin Exam: Dry, Intact, Normal Color, Warm Assessment and Plan - Assessment and Plan (Free Text) Assessment: 31 F with a PMHx of Nasopharyngeal Carcinoma, still currently under treatment ( radiation and chemotherapy) and HTN admitted for Syncopal episode. Antibiotics held at this time. Awaiting fungal specific labs. ID is following. Will discuss possibility to biopsy sinus by ENT will hold off on abx until then. Syncope -most likely related to nasopharyngeal CA; already known as metastatic -Brain MRI w/ and w/o contrast demonstrated sinusitis and mastoiditis -No further episodes Anemia - likely chronic disease - will fu with anemia workup and coags Sinusitus Bacterial vs fungal - ID consulted, Dr. Soto recommended to hold abx until tissue diagnosis and fu with specific labs - ENT consulted, Dr. Tucker, recommend nasal hygiene and bactroban to nares - MRI demonstrated sinusitis and mastoiditis - Repeat CT of sinus as per ID, Will fu with results. Nasopharyngeal carcinoma - under treatment - radiation and chemotherapy - dilaudid for pain control HTN - Stable - continue home meds Hx PE - 15mg daily Tobacco abuse - counselled on tobacco cessation - offer nicotine patch Constipation - 2/2 opiates - miralax colace - had bm yesterday Prophylaxis Protonix Lovenox Regular Diet <Bruno Neil B - Last Filed: 04/11/17 15:27> Objective - Vital Signs/Intake and Output Vital Signs (last 24 hours): Temp Pulse Resp BP Pulse Ox 98.3 F 76 18 142/97 H 100 04/11/17 09:48 04/11/17 10:48 04/11/17 09:48 04/11/17 10:48 04/11/17 09:48 Intake and Output: 04/11/17 04/11/17 06:59 18:59 Intake Total 780 540 Balance 780 540 - Medications Medications: Current Medications Acetaminophen/Butalbital/Caffeine (Fioricet) 1 tab PO Q4H PRN PRN Reason: Headache Amlodipine Besylate (Norvasc) 5 mg PO DAILY [facility] Last Admin: 04/11/17 10:47 Dose: 5 mg Benzonatate (Tessalon Perles) 100 mg PO TID [facility] Last Admin: 04/11/17 10:48 Dose: 100 mg Diphenhydramine HCl (Benadryl) 25 mg IVP Q6H PRN PRN Reason: itchiness Last Admin: 04/11/17 10:49 Dose: 25 mg Docusate Sodium (Colace) 100 mg PO BID [facility] Last Admin: 04/11/17 10:47 Dose: 100 mg Famotidine (Pepcid) 20 mg PO BID [facility] Last Admin: 04/11/17 10:47 Dose: 20 mg Hydromorphone HCl (Dilaudid) 1 mg IVP Q4H PRN PRN Reason: Pain, severe (8-10) Ibuprofen (Motrin Tab) 600 mg PO Q6H PRN PRN Reason: Headache Last Admin: 04/11/17 13:43 Dose: 600 mg Labetalol HCl (Trandate) 200 mg PO BID [facility] Last Admin: 04/11/17 10:48 Dose: 200 mg Polyethylene Glycol (Miralax) 17 gm PO DAILY [facility] Last Admin: 04/11/17 10:47 Dose: 17 gm Rivaroxaban (Xarelto) 15 mg PO DAILY [facility] PRN Reason: Protocol Last Admin: 04/11/17 10:48 Dose: 15 mg Sodium Chloride (Isabella Nasal [place]) 3 ml NS Q4 [facility] Last Admin: 04/10/17 21:47 Dose: Not Given - Labs Labs: 04/11/17 08:00 04/10/17 06:45 PT 10.6 Seconds (9.9-11.8) 04/08/17 09:50 INR 0.98 (0.93-1.08) 04/08/17 09:50 APTT 29.8 Seconds (23.7-30.8) 04/08/17 09:50 Attending/Attestation - Attestation I have personally seen and examined this patient.: Yes I have fully participated in the care of the patient.: Yes I have reviewed all pertinent clinical information, including history, physical exam and plan: Yes Notes (Text): I have seen and examined patient at bedside. I agree with the note dictated above with the following additions/ exceptions: Briefly this is 31 year old female with history of nasopharyngeal cancer s/p chemo and partial removal of the tumor, HTN, chronic anemia, history of PE on xeralto who was admitted for evaluation of syncope which is most likely due to transient cerbral hypoperfusion due to nasopharyngeal cancer vs opioid use. ENT recommended nasal hygiene and advised to follow up in [facility]. There is a suspicion of sinusitis which can be due to fungus vs bacterial vs allergic. ID recommended to hold antibiotics until tissue diagnosis is obtained. ENT was re consulted yesterday and they recommended CT sinuses, result of which is pending at this time and possible biopsy later in this week. Patient is on xeralto. Half life is 5-9 hours. Will hold prior to biopsy. Beta glucan and galactomannan tests are pending. She has subclinical hyperthyroidism. There is a suspicion of opioid abuse. Counselling provided. Tobacco cessation counselling also provided. Dr Bruno Neil
[2017-04-11] MEDS: POLYETHYLENE GLYCOL 3350 17 GM/Dose PACKET PO SCH (10:47)
--- NOTE | 2017-04-11 13:34 | CT ---
PROCEDURE: CT SINUSES WITHOUT CONTRAST HISTORY: sinusitis COMPARISON: None TECHNIQUE: Contiguous axial CT images of the paranasal sinuses were obtained. Coronal and sagittal reformats were generated. Radiation dose: Total exam DLP = 238 mGy-cm. This CT exam was performed using one or more of the following dose reduction techniques: Automated exposure control, adjustment of the mA and/or kV according to patient size, and/or use of iterative reconstruction technique. FINDINGS: FRONTAL SINUSES: There is opacification of the left frontal sinus ETHMOID SINUSES: There is opacification of the majority of the ethmoid air cells. SPHENOID SINUSES: There has been extensive surgery on the nasal cavity with resection of the terminates and nasal septum. There has been resection of the anterior wall of the sphenoid sinus and the medial ivey of the maxillary sinuses. MAXILLARY SINUSES: Resection of the medial wall of the maxillary sinuses bilaterally. There is near complete opacification of the maxillary sinuses. SINUS DRAINAGE: Previous surgery NASAL SEPTUM: Previous surgery MASS: None. SKULL BASE: Unremarkable. TEMPORAL BONES: There is opacification of the mastoid air cells consistent with chronic mastoiditis. There is also partial opacification of the middle ear cavities. There is no disruption of the ossicles OTHER FINDINGS: None. IMPRESSION: Previous surgery on the nasal cavity and sinuses. Sinusitis and mastoiditis
[2017-04-11] MEDS ORDERED: Apap-Butalbital-Caffeine 325-50-40mg Tab PO PRN (14:26)
--- NOTE | 2017-04-11 17:38 | CP.PCM.PN ---
Subjective - Date & Time of Evaluation Date of Evaluation: 04/11/17 Time of Evaluation: 11:40 - Subjective Subjective: Comfortable, not in distress, afebrile. Objective - Vital Signs/Intake and Output Vital Signs (last 24 hours): Temp Pulse Resp BP Pulse Ox 99.6 F 79 19 142/98 H 100 04/10/17 17:00 04/10/17 17:00 04/10/17 17:00 04/10/17 17:18 04/10/17 17:00 Intake and Output: 04/11/17 04/11/17 06:59 18:59 Intake Total 780 Balance 780 - Medications Medications: Current Medications Amlodipine Besylate (Norvasc) 5 mg PO DAILY [facility] Benzonatate (Tessalon Perles) 100 mg PO TID [facility] Last Admin: 04/10/17 14:26 Dose: 100 mg Diphenhydramine HCl (Benadryl) 25 mg IVP Q6H PRN PRN Reason: itchiness Last Admin: 04/11/17 04:56 Dose: 25 mg Docusate Sodium (Colace) 100 mg PO BID [facility] Last Admin: 04/10/17 17:18 Dose: 100 mg Famotidine (Pepcid) 20 mg PO BID [facility] Last Admin: 04/10/17 17:18 Dose: 20 mg Hydromorphone HCl (Dilaudid) 2 mg IVP Q4H PRN PRN Reason: Pain, severe (8-10) Last Admin: 04/11/17 09:13 Dose: 2 mg Ibuprofen (Motrin Tab) 600 mg PO Q6H PRN PRN Reason: Headache Last Admin: 04/10/17 17:22 Dose: 600 mg Labetalol HCl (Trandate) 200 mg PO BID [facility] Last Admin: 04/10/17 17:18 Dose: 200 mg Polyethylene Glycol (Miralax) 17 gm PO DAILY [facility] Last Admin: 04/10/17 11:46 Dose: Not Given Rivaroxaban (Xarelto) 15 mg PO DAILY [facility] PRN Reason: Protocol Last Admin: 04/10/17 11:48 Dose: 15 mg Sodium Chloride ([place] Nasal [place]) 3 ml NS Q4 [facility] Last Admin: 04/10/17 21:47 Dose: Not Given - Labs Labs: 04/11/17 08:00 06/11/17 06:45 PT 10.6 Seconds (9.9-11.8) 04/08/17 09:50 INR 0.98 (0.93-1.08) 04/08/17 09:50 APTT 29.8 Seconds (23.7-30.8) 04/08/17 09:50 - Constitutional Appears: Non-toxic, No Acute Distress - Head Exam Head Exam: NORMAL INSPECTION - Neck Exam Neck Exam: absent: Meningismus - Respiratory Exam Respiratory Exam: Decreased Breath Sounds - Cardiovascular Exam Cardiovascular Exam: +S1, +S2 - GI/Abdominal Exam GI & Abdominal Exam: Soft. absent: Tenderness Assessment and Plan - Assessment and Plan (Free Text) Plan: Assessment R/O sinusitis, fungal versus bacterial history of nasopharyngeal CA S/P chemotherapy x 6 weeks and partial removal of the tumor HTN chronic anemia Plan reviewed CT of sinuses - there is sinusitis and mastoiditis - will start Zosyn; follow up beta glucan and galactomannan tests; blood cx are negative; reviewed ENT recommendations will continue to follow clinically
[2017-04-11] MEDS ORDERED: Piperacillin/Tazobact 3.375 gm 100 ML IVPB SCH (18:00)
[2017-04-11 18:47] VITALS: BP 150/92; PULSE 80
[2017-04-11 19:15] VITALS: RESP 20; TEMP 98.4; O2SAT 99
--- NOTE | 2017-04-11 20:07 | CP.PCM.PN ---
Subjective - Date & Time of Evaluation Date of Evaluation: 04/11/17 Time of Evaluation: 20:06 - Subjective Subjective: # 22 angiocath was inserted in right forearm. Dx:Poor venous access. Objective - Vital Signs/Intake and Output Vital Signs (last 24 hours): Temp Pulse Resp BP Pulse Ox 98.4 F 80 20 150/92 H 99 04/11/17 18:00 04/11/17 18:46 04/11/17 18:00 04/11/17 18:46 04/11/17 18:00 Intake and Output: 04/11/17 04/12/17 18:59 06:59 Intake Total 540 Balance 540 - Medications Medications: Current Medications Acetaminophen/Butalbital/Caffeine (Fioricet) 1 tab PO Q4H PRN PRN Reason: Headache Amlodipine Besylate (Norvasc) 5 mg PO DAILY [facility] Last Admin: 04/11/17 10:47 Dose: 5 mg Benzonatate (Tessalon Perles) 100 mg PO TID [facility] Last Admin: 04/11/17 18:44 Dose: 100 mg Diphenhydramine HCl (Benadryl) 25 mg IVP Q6H PRN PRN Reason: itchiness Last Admin: 04/11/17 17:27 Dose: 25 mg Docusate Sodium (Colace) 100 mg PO BID [facility] Last Admin: 04/11/17 18:44 Dose: 100 mg Famotidine (Pepcid) 20 mg PO BID [facility] Last Admin: 04/11/17 18:44 Dose: 20 mg Hydromorphone HCl (Dilaudid) 1 mg IVP Q4H PRN PRN Reason: Pain, severe (8-10) Last Admin: 04/11/17 17:27 Dose: 1 mg Piperacillin Sod/Tazobactam Sod (Zosyn 3.375 In Ns 100ml) 100 mls @ 200 mls/hr IVPB Q6 [facility] PRN Reason: Protocol Stop: 04/18/17 18:01 Last Admin: 04/11/17 19:44 Dose: Not Given Ibuprofen (Motrin Tab) 600 mg PO Q6H PRN PRN Reason: Headache Last Admin: 04/11/17 13:43 Dose: 600 mg Labetalol HCl (Trandate) 200 mg PO BID [facility] Last Admin: 06/12/17 18:46 Dose: 200 mg Polyethylene Glycol (Miralax) 17 gm PO DAILY [facility] Last Admin: 04/11/17 10:47 Dose: 17 gm Rivaroxaban (Xarelto) 15 mg PO DAILY [facility] PRN Reason: Protocol Last Admin: 04/11/17 10:48 Dose: 15 mg Sodium Chloride ([place] Nasal [place]) 3 ml NS Q4 [facility] Last Admin: 04/11/17 18:41 Dose: 1 dose - Labs Labs: 04/11/17 08:00 04/10/17 06:45 PT 10.6 Seconds (9.9-11.8) 04/08/17 09:50 INR 0.98 (0.93-1.08) 04/08/17 09:50 APTT 29.8 Seconds (23.7-30.8) 04/08/17 09:50
[2017-04-11 20:25] LABS: A TERREUS NOT DETECTED
[2017-04-11 22:32] LABS: (1-3)-B-D GLUCAN <31 pg/mL
[2017-04-12] MEDS: HYDROmorphone 2 mg/ml ISec IVP PRN (01:25)
[2017-04-12] MEDS: DiphenhydrAMINE 50 mg/ml Inj IVP PRN (01:26)
--- NOTE | 2017-04-12 19:12 | CP.PCM.HP ---
History of Present Illness - History of Present Illness History of Present Illness: This patient is a 31yo F who recently AMA'ed from the hospital who was set up to do an ENT guided biopsy of her sinuses. She is returned to the hospital after leaving this morning. This patient is a 31 AA F w/ a PMHx of Nasopharyngeal Carcinoma, still currently under treatment (radiation and chemotherapy) and HTN who is presenting to the ED w/ a Syncopal episode from 4 days ago. As per HnP from prior admission, the patient states she was laying on the couch, went to get up to go [facility], and the next thing she remembers is her auntie slapping her in the face to wake her up. She denies tongue biting, urinary incontinence, fecal incontinence. No post ictal state was reported by the ED staff or aunt. She is currently complaining of a headache that she has had on and off since she discovered she had cancer. She states it feels exactly the same as when she has sinus infections when she goes to [facility] which is where she normally gets treated. She denies any fevers/chills, CP, SOB, abdominal pain, N/V/D, dysuria/ freq/urg, or lower extremity pain/swelling. Allergies: Tylenol, Ketoralac, Metoclopramide, Zofran; patient states that nothing actually happens when she takes these medications but that they simply do not work and she is therefore "allergic" to them Surgeries: tumor debulking last october FamHx: unknown; patient is adopted Social: Lives at home, unemployed; currently on home dilaudid which is "not helping anymore" Meds: Labetalol 200mg BID, Norvasc 2.5mg daily, Rivaroxaban Present on Admission - Present on Admission Any Indicators Present on Admission: No History of DVT/PE: Yes History of Uncontrolled Diabetes: No Urinary Catheter: No Decubitus Ulcer Present: No Review of Systems - Review of Systems All systems: reviewed and no additional remarkable complaints except Past Patient History - Past Social History Smoking Status: Current Some Days Smoker - CARDIAC Hx Cardiac Disorders: No - PULMONARY Hx Respiratory Disorders: No - NEUROLOGICAL Hx Neurological Disorder: No - HEENT Hx HEENT Problems: No - RENAL Hx Chronic Kidney Disease: No - ENDOCRINE/METABOLIC Hx Endocrine Disorders: No - HEMATOLOGICAL/ONCOLOGICAL Hx Cancer: Yes (Nasal Pharengeal Carcinoma) - INTEGUMENTARY Hx Dermatological Problems: No - MUSCULOSKELETAL/RHEUMATOLOGICAL Hx Musculoskeletal Disorders: No Hx Falls: No - GASTROINTESTINAL Hx Gastrointestinal Disorders: No - GENITOURINARY/GYNECOLOGICAL Hx Genitourinary Disorders: No - PSYCHIATRIC Hx Psychophysiologic Disorder: No - SURGICAL HISTORY Hx Surgeries: No - ANESTHESIA Hx Anesthesia: No Meds Allergies/Adverse Reactions: Allergies Allergy/AdvReac Type Severity Reaction Status Date / Time acetaminophen [From Percocet] Allergy RASH Verified 04/12/17 17:19 ketorolac [From Toradol] Allergy RASH Verified 04/12/17 17:19 metoclopramide [From Reglan] Allergy RASH Verified 04/12/17 17:19 ondansetron Allergy RASH Verified 04/12/17 17:19 [From Zofran (as hydrochloride)] oxycodone [From Percocet] Allergy RASH Verified 04/12/17 17:19 lactose AdvReac RASH Verified 04/12/17 17:19 Physical Exam - Constitutional Additional comments: - Constitutional Appears: Non-toxic, No Acute Distress - Head Exam Head Exam: NORMAL INSPECTION - Neck Exam Neck Exam: absent: Meningismus - Respiratory Exam Respiratory Exam: Decreased Breath Sounds - Cardiovascular Exam Cardiovascular Exam: +S1, +S2 - GI/Abdominal Exam GI & Abdominal Exam: Soft. absent: Tenderness Results - Vital Signs Recent Vital Signs: Last Vital Signs Temp 98.4 F 04/11/17 18:00 Pulse 80 04/11/17 18:46 Resp 20 04/11/17 18:00 BP 150/92 H 04/11/17 18:46 Pulse Ox 99 04/11/17 18:00 - Labs Result Diagrams: 04/11/17 08:00 04/10/17 06:45 Assessment & Plan - Assessment and Plan (Free Text) Assessment: 31 F with a PMHx of Nasopharyngeal Carcinoma, recent AMA, still currently under treatment (radiation and chemotherapy) and HTN admitted for Syncopal episode. Antibiotics held at this time. Awaiting fungal specific labs. ID is following. Will discuss possibility to biopsy sinus by ENT will hold off on abx until then. Syncope -most likely related to nasopharyngeal CA; already known as metastatic -Brain MRI w/ and w/o contrast demonstrated sinusitis and mastoiditis -No further episodes Anemia - likely chronic disease -c/w iron Sinusitus Bacterial vs fungal - ID consulted, Dr. Soto recommended to hold abx until tissue diagnosis and fu with specific labs - ENT consulted, Dr. Tucker, recommend nasal hygiene and bactroban to nares - MRI demonstrated sinusitis and mastoiditis - patient for biopsy of sinuses Nasopharyngeal carcinoma - under treatment - radiation and chemotherapy - dilaudid for pain control -patient is pain seeking HTN - Stable - continue home meds Hx PE - 15mg daily Subclinical hypothyroidism -patient not complaining of weight loss or hair loss -TSH low .02, Free T4 WNL Tobacco abuse - counselled on tobacco cessation - offer nicotine patch Constipation - 2/2 opiates - miralax colace - had bm yesterday Prophylaxis Protonix Lovenox Regular Diet Decision To Admit - Pt Status Changed To: Hospital Disposition Of: Inpatient Admission - Admit Certification Admit to Inpatient:: After my assessment, the patient will require hospitalization for at least two midnights. This is because of the severity of symptoms shown, intensity of services needed, and/or the medical risk in this patient being treated as an outpatient. - . Bed Request Type: Med/Surg Admitting Physician: Delfino Lucio
[2017-04-12] MEDS ORDERED: DiphenhydrAMINE 50 mg/ml Inj IVP PRN (19:13)
[2017-04-12] MEDS ORDERED: Levalbuterol 1.25 MG/3 ML Inhal Soln UD IH PRN (19:29)
[2017-04-13] MEDS ORDERED: Docusate-Senna 50 mg-8.6 mg Tab PO SCH (10:00)
== END 2017-04-12 03:40 | disposition left against medical advice (07) | DRG 64 ==
LOC: ED 22:10 → ERH 04-07 02:23 → 3RSO 04-07 12:47 → OBSVTOIN 04-08 15:42 → 3RSO 04-09 18:52
PROVIDERS: ADMIT Hospitalist; ATTEND Hospitalist
DX: C11.9 Malignant neoplasm of nasopharynx, unspecified (principal); C79.9 Secondary malignant neoplasm of unspecified site; E86.0 Dehydration; E05.90 Thyrotoxicosis, unspecified without thyrotoxic crisis or storm; F11.10 Opioid abuse, uncomplicated; H70.90 Unspecified mastoiditis, unspecified ear; D64.9 Anemia, unspecified; F40.240 Claustrophobia; G89.3 Neoplasm related pain (acute) (chronic); H54.42 Blindness, left eye, normal vision right eye; J32.9 Chronic sinusitis, unspecified; I10 Essential (primary) hypertension; Z92.21 Personal history of antineoplastic chemotherapy; Z92.3 Personal history of irradiation; Z86.711 Personal history of pulmonary embolism; H92.09 Otalgia, unspecified ear; R55 Syncope and collapse; R20.1 Hypoesthesia of skin; Z72.0 Tobacco use; K59.00 Constipation, unspecified

== ENCOUNTER 2017-04-12 16:56 | Inpatient (IN) | payer OTHER ==
--- NOTE | 2017-04-12 17:43 | ED PDOC ---
Arrival/HPI - General Chief Complaint: Syncope Time Seen by Provider: 04/12/17 17:37 Historian: Patient - History of Present Illness Narrative History of Present Illness (Text): 04/12/17 17:40 This 31 yo female with pmh nasal-pharyngeal Ca., presents to this ED c/o severe left facial pain x 1 week. Patient stated she was admitted in this hospital, but she signed herself out last night due to a important family matters. Her daughter was sick in the hospital, and she was recommended to return to hospital once family problems are resolved. Patient feels fatigue. On the contrary of triage note, patient denies Syncope. Denies fever, sob, dysphagia, cp, abdominal pain, or abnormal gait. Time/Duration: Other (ee hpi) Context: Home Past Medical History - Provider Review Nursing Documentation Reviewed: Yes - Infectious Disease Hx of Infectious Diseases: None - Cardiac Hx Cardiac Disorders: No - Pulmonary Hx Respiratory Disorders: No - Neurological Hx Neurological Disorder: No - HEENT Hx HEENT Disorder: No - Renal Hx Renal Disorder: No - Endocrine/Metabolic Hx Endocrine Disorders: No - Hematological/Oncological Hx Cancer: Yes (Nasal Pharengeal Carcinoma) - Integumentary Hx Dermatological Disorder: No - Musculoskeletal/Rheumatological Hx Musculoskeletal Disorders: No Hx Falls: No - Gastrointestinal Hx Gastrointestinal Disorders: No - Genitourinary/Gynecological Hx Genitourinary Disorders: No - Psychiatric Hx Psychophysiologic Disorder: No Hx Substance Use: No - Surgical History Other/Comment: skull based tumor. - Anesthesia Hx Anesthesia: Yes Hx Anesthesia Reactions: No Family/Social History - Physician Review Nursing Documentation Reviewed: Yes Family/Social History: No Known Family HX Smoking Status: Current Some Days Smoker Hx Alcohol Use: No Hx Substance Use: No Allergies/Home Meds Allergies/Adverse Reactions: Allergies acetaminophen [From Percocet] Allergy (Verified 04/12/17 17:19) RASH ketorolac [From Toradol] Allergy (Verified 04/12/17 17:19) RASH metoclopramide [From Reglan] Allergy (Verified 04/12/17 17:19) RASH ondansetron [From Zofran (as hydrochloride)] Allergy (Verified 04/12/17 17:19) RASH oxycodone [From Percocet] Allergy (Verified 04/12/17 17:19) RASH lactose Adverse Reaction (Verified 04/12/17 17:19) RASH Home Medications: Home Meds Medication Instructions Recorded Confirmed Ferrous Sulfate [Ferosul] 325 mg PO DAILY 04/07/17 04/12/17 Labetalol [Trandate] 200 mg PO BID 04/07/17 04/12/17 amLODIPine [Norvasc] 5 mg PO DAILY 04/07/17 04/12/17 Review of Systems - Review of Systems Constitutional: Normal. absent: Fatigue, Weight Change, Fevers Eyes: Normal ENT: Sinus Congestion, Other (left sided face pain) Respiratory: Normal. absent: SOB, Cough Cardiovascular: Normal. absent: Chest Pain, Palpitations Gastrointestinal: Normal. absent: Abdominal Pain, Nausea, Vomiting Genitourinary Female: Normal. absent: Dysuria, Vaginal Discharge, Other Musculoskeletal: Normal Skin: Normal Neurological: Normal. absent: Headache, Dizziness, Focal Weakness, Gait Changes , Speech Changes Endocrine: Normal Hemo/Lymphatic: Normal Psychiatric: Normal Physical Exam Vital Signs Temp Pulse Resp BP Pulse Ox 04/12/17 17:23 98.7 F 111 H 19 136/96 H 99 Temperature: Afebrile Blood Pressure: Normal Pulse: Regular Respiratory Rate: Normal Appearance: Positive for: Well-Appearing, Non-Toxic, Comfortable Pain Distress: None Mental Status: Positive for: Alert and Oriented X 3 - Systems Exam Head: Present: Atraumatic, Normocephalic Pupils: Present: PERRL Extroacular Muscles: Present: EOMI Conjunctiva: Present: Normal Mouth: Present: Moist Mucous Membranes Pharnyx: Present: Normal. No: ERYTHEMA, EXUDATE, Muffled/Hoarse Voice Nose (External): Present: Atraumatic Nose (Internal): Present: Edematous Neck: Present: Normal Range of Motion Respiratory/Chest: Present: Clear to Auscultation, Good Air Exchange. No: Respiratory Distress, Accessory Muscle Use Cardiovascular: Present: Regular Rate and Rhythm, Normal S1, S2. No: Murmurs Abdomen: Present: Normal Bowel Sounds. No: Tenderness, Distention, Peritoneal Signs Back: Present: Normal Inspection. No: CVA Tenderness Upper Extremity: Present: Normal Inspection, Normal ROM, NORMAL PULSES, Neurovascularly Intact, Capillary Refill < 2s. No: Cyanosis, Edema Lower Extremity: Present: Normal Inspection, NORMAL PULSES, Normal ROM, Deformity, Neurovascularly Intact. No: Edema, CALF TENDERNESS Neurological: Present: GCS=15, CN II-XII Intact, Speech Normal, Motor Func Grossly Intact, Normal Sensory Function, Normal Cerebellar Funct, Gait Normal Skin: Present: Warm, Dry, Normal Color. No: Rashes Psychiatric: Present: Alert, Oriented x 3, Normal Insight, Normal Concentration Medical Decision Making ED Course and Treatment: 04/12/17 19:[address] Lucio regarding patient c/o left facial pain, feeling weak. He agrees with plan for admission. Re-evaluation Time: 19:15 Reassessment Condition: Re-examined, Improving,but remains with symptoms - Lab Interpretations Lab Results: 04/12/17 18:10 Lab Results 04/12/17 18:10: WBC 3.3 L, RBC 3.56, Hgb 9.9 L, Hct 31.0 L, MCV 87.1, MCH 27.8, MCHC 31.9, RDW 15.8 H, Plt Count 302, MPV 10.1, Gran % 69.9 H, Lymph % (Auto) 14.0 L, [place] % (Auto) 8.8 H, Eos % (Auto) 7.0 H, Baso % (Auto) 0.3, Gran # 2.29 , Lymph # 0.5 L, [place] # 0.3, Eos # 0.2, Baso # 0.01 04/12/17 15:40: Urine HCG, Qual Negative 04/12/17 15:40: Urine Color Yellow, Urine Appearance Clear, Urine pH 6.5, Ur Specific [place] 1.020, Urine Protein Trace H, Urine Glucose (UA) Negative, Urine Ketones Negative, Urine Blood Negative, Urine Nitrate Negative, Urine Bilirubin Negative, Urine Urobilinogen 0.2, Ur Leukocyte Esterase Small H, Urine RBC 0 - 2, Urine WBC 5 - 10, Ur Epithelial Cells 4 - 5, Amorphous Sediment Few, Urine Bacteria Many - Medication Orders Current Medication Orders: Discontinued Medications Diphenhydramine HCl (Benadryl) 25 mg IVP STAT STA Stop: 04/12/17 18:44 Hydromorphone HCl (Dilaudid) 1 mg IVP STAT STA Stop: 04/12/17 17:47 Last Admin: 04/12/17 18:15 Dose: 1 mg Sodium Chloride (Sodium Chloride 0.9%) 1,000 mls @ 999 mls/hr IV .Q1H1M STA Stop: 04/12/17 18:46 Last Admin: 04/12/17 18:15 Dose: 999 mls/hr Disposition/Present on Arrival - Present on Arrival Any Indicators Present on Arrival: No History of DVT/PE: No History of Uncontrolled Diabetes: No Urinary Catheter: No History of Decub. Ulcer: No History Surgical Site Infection Following: None - Disposition Have Diagnosis and Disposition been Completed?: Yes Diagnosis: Sinusitis with nasal polyps, Intractable pain Disposition: HOSPITALIZED Disposition Time: 19:15 Patient Plan: Admission Patient Problems: Current Active Problems Problem Status Onset Sinusitis with nasal polyps Acute Intractable pain Acute Condition: STABLE
[2017-04-12] MEDS ORDERED: Sodium Chloride 0.9% 1,000 ML IV STA (17:46)
[2017-04-12] MEDS ORDERED: HYDROmorphone 1 mg/ml ISec IVP STA (17:46)
[2017-04-12 17:58] LABS: PH,URINE 6.5 (4.7-8.0); URINE BILIRUBIN NEGATIVE (NEGATIVE); URINE BLOOD NEGATIVE (NEGATIVE); URINE GLUCOSE (UA) NEGATIVE (NEGATIVE); URINE KETONE NEGATIVE (NEGATIVE); URINE LEUKOCYTE ESTERASE SMALL Leu/uL (NEGATIVE); URINE PROTEIN TRACE mg/dL (<30 mg/dL); URINE UROBILINOGEN 0.2 E.U./dL (<1 E.U./dL)
[2017-04-12 18:00] LABS: URINE APPEARANCE CLEAR (CLEAR); URINE COLOR YELLOW (YELLOW)
[2017-04-12 18:07] LABS: URINE AMORPHOUS SEDIMENT FEW; URINE BACTERIA MANY (NEG); URINE RBC 0 - 2 /hpf (0-2)
[2017-04-12 18:27] LABS: ADD MANUAL DIFF? NO
[2017-04-12 18:38] LABS: BASO # 0.01 K/mm3 (0.0-2.0); BASO % 0.3 % (0.0-3.0); EOS # 0.2 (0.0-0.7); GRAN # 2.29 (1.4-6.5); GRAN % 69.9 % (50.0-68.0); LYMPH # 0.5 (1.2-3.4); MEAN CELL VOLUME 87.1 fL (80.0-105.0); MEAN CORPUSCULAR HEMOGLOBIN 27.8 pg (25.0-35.0); MEAN CORPUSCULAR HGB CONC 31.9 g/dl (31.0-37.0); MEAN PLATELET VOLUME 10.1 fl (7.0-11.0); MONO # 0.3 (0.1-0.6); MONO % 8.8 % (1.0-6.0); PLATELET COUNT 302 10^3/uL (120.0-450.0); RED CELL DISTRIBUTION WIDTH 15.8 % (11.5-14.5); WHITE BLOOD COUNT 3.3 10^3/ul (4.5-11.0)
[2017-04-12] MEDS ORDERED: DiphenhydrAMINE 50 mg/ml Inj IVP STA (18:43)
[2017-04-12] MEDS ORDERED: Albuterol 0.083% Inhal Sol (2.5 mg/3 mL) UD IH PRN (19:53)
--- NOTE | 2017-04-12 19:59 | CP.PCM.HP ---
<Delfino Lucio - Last Filed: 04/12/17 20:56> Meds Allergies/Adverse Reactions: Allergies Allergy/AdvReac Type Severity Reaction Status Date / Time acetaminophen [From Percocet] Allergy RASH Verified 04/12/17 17:19 ketorolac [From Toradol] Allergy RASH Verified 04/12/17 17:19 metoclopramide [From Reglan] Allergy RASH Verified 04/12/17 17:19 ondansetron Allergy RASH Verified 04/12/17 17:19 [From Zofran (as hydrochloride)] oxycodone [From Percocet] Allergy RASH Verified 04/12/17 17:19 lactose AdvReac RASH Verified 04/12/17 17:19 Results - Vital Signs Recent Vital Signs: Last Vital Signs Temp 98.7 F 04/12/17 17:23 Pulse 111 H 04/12/17 17:23 Resp 19 04/12/17 17:23 BP 136/96 H 04/12/17 17:23 Pulse Ox 99 04/12/17 17:23 - Labs Result Diagrams: 04/12/17 18:10 Attending/Attestation - Attestation I have personally seen and examined this patient.: Yes I have fully participated in the care of the patient.: Yes I have reviewed all pertinent clinical information: Yes Notes (Text): 04/12/17 20:53 Patient was seen when she was in the PES room in the ER. Agree with history, physical examination, assessment and plan. 31 arnold old woman who had signed out AMA this morning is back for biopsy by ENT, new symptoms she has developed now is both sided facial pain which is sharp sometimes, dull sometimes, at 10 on 1-10 scale.Has PMH of naso pharyngeal cancer,anemia, sickle cell trait, hypertension, bronchitis , fibroids , C-sectons x 3, pulmonary embolism 2 months ago, right forehead contusion , left eye total blindness, both ears diminished hearing, palpitations, GERD, renal calculus, right sided nephrostomy tube placement, anxiety, panic disorder, weight loss (220 lb to 167 lb),family history of prostate cancer,lung cancer, sickle cell trait and disease. <Champ Barros - Last Filed: 04/12/17 21:19> History of Present Illness - History of Present Illness History of Present Illness: Note was mistakenly entered on previous admission for this HnP; the HnP is copied and pasted below for your convenience This patient is a 31yo F who recently AMA'ed from the hospital who was set up to do an ENT guided biopsy of her sinuses. She is returned to the hospital after leaving this morning. This patient is a 31 AA F w/ a PMHx of Nasopharyngeal Carcinoma, still currently under treatment (radiation and chemotherapy) and HTN who is presenting to the ED w/ a Syncopal episode from 4 days ago. As per HnP from prior admission, the patient states she was laying on the couch, went to get up to go [facility], and the next thing she remembers is her auntie slapping her in the face to wake her up. She denies tongue biting, urinary incontinence, fecal incontinence. No post ictal state was reported by the ED staff or aunt. She is currently complaining of a headache that she has had on and off since she discovered she had cancer. She states it feels exactly the same as when she has sinus infections when she goes to [facility] which is where she normally gets treated. She denies any fevers/chills, CP, SOB, abdominal pain, N/V/D, dysuria/ freq/urg, or lower extremity pain/swelling. Allergies: Tylenol, Ketoralac, Metoclopramide, Zofran; patient states that nothing actually happens when she takes these medications but that they simply do not work and she is therefore "allergic" to them Surgeries: tumor debulking last october FamHx: unknown; patient is adopted Social: Lives at home, unemployed; currently on home dilaudid which is "not helping anymore" Meds: Labetalol 200mg BID, Norvasc 2.5mg daily, Rivaroxaban Present on Admission - Present on Admission Any Indicators Present on Admission: No History of DVT/PE: Yes History of Uncontrolled Diabetes: No Urinary Catheter: No Decubitus Ulcer Present: No Review of Systems - Review of Systems All systems: reviewed and no additional remarkable complaints except Past Patient History - Past Social History Smoking Status: Current Some Days Smoker - CARDIAC Hx Cardiac Disorders: No - PULMONARY Hx Respiratory Disorders: No - NEUROLOGICAL Hx Neurological Disorder: No - HEENT Hx HEENT Problems: No - RENAL Hx Chronic Kidney Disease: No - ENDOCRINE/METABOLIC Hx Endocrine Disorders: No - HEMATOLOGICAL/ONCOLOGICAL Hx Cancer: Yes (Nasal Pharengeal Carcinoma) - INTEGUMENTARY Hx Dermatological Problems: No - MUSCULOSKELETAL/RHEUMATOLOGICAL Hx Musculoskeletal Disorders: No Hx Falls: No - GASTROINTESTINAL Hx Gastrointestinal Disorders: No - GENITOURINARY/GYNECOLOGICAL Hx Genitourinary Disorders: No - PSYCHIATRIC Hx Psychophysiologic Disorder: No - SURGICAL HISTORY Hx Surgeries: No - ANESTHESIA Hx Anesthesia: No Meds Allergies/Adverse Reactions: Allergies Allergy/AdvReac Type Severity Reaction Status Date / Time acetaminophen [From Percocet] Allergy RASH Verified 04/12/17 17:19 ketorolac [From Toradol] Allergy RASH Verified 04/12/17 17:19 metoclopramide [From Reglan] Allergy RASH Verified 04/12/17 17:19 ondansetron Allergy RASH Verified 04/12/17 17:19 [From Zofran (as hydrochloride)] oxycodone [From Percocet] Allergy RASH Verified 04/12/17 17:19 lactose AdvReac RASH Verified 04/12/17 17:19 Physical Exam - Constitutional Additional comments: - Constitutional Appears: Non-toxic, No Acute Distress - Head Exam Head Exam: NORMAL INSPECTION - Neck Exam Neck Exam: absent: Meningismus - Respiratory Exam Respiratory Exam: Decreased Breath Sounds - Cardiovascular Exam Cardiovascular Exam: +S1, +S2 - GI/Abdominal Exam GI & Abdominal Exam: Soft. absent: Tenderness Results - Vital Signs Recent Vital Signs: Last Vital Signs Temp 98.4 F 04/11/17 18:00 Pulse 80 04/11/17 18:46 Resp 20 04/11/17 18:00 BP 150/92 H 04/11/17 18:46 Pulse Ox 99 04/11/17 18:00 - Labs Result Diagrams: 04/11/17 08:00 04/10/17 06:45 Assessment & Plan - Assessment and Plan (Free Text) Assessment: 31 F with a PMHx of Nasopharyngeal Carcinoma, recent AMA, still currently under treatment (radiation and chemotherapy) and HTN admitted for Syncopal episode. Antibiotics held at this time. Awaiting fungal specific labs. ID is following. Will discuss possibility to biopsy sinus by ENT will hold off on abx until then. Syncope -most likely related to nasopharyngeal CA; already known as metastatic -Brain MRI w/ and w/o contrast demonstrated sinusitis and mastoiditis -No further episodes Anemia - likely chronic disease -c/w iron Sinusitus Bacterial vs fungal - ID consulted, Dr. Soto recommended to hold abx until tissue diagnosis and fu with specific labs - ENT consulted, Dr. Tucker, recommend nasal hygiene and bactroban to nares - MRI demonstrated sinusitis and mastoiditis - patient for biopsy of sinuses Nasopharyngeal carcinoma - under treatment - radiation and chemotherapy - dilaudid for pain control -patient is pain seeking HTN - Stable - continue home meds Hx PE - 15mg daily Subclinical hypothyroidism -patient not complaining of weight loss or hair loss -TSH low .02, Free T4 WNL Tobacco abuse - counselled on tobacco cessation - offer nicotine patch; refuses Constipation - 2/2 opiates - miralax colace - had bm yesterday Prophylaxis Pepcid Rivaroxaban for DVT tx Regular Diet Case discussed with Dr. Khadijah Barros PGY1 Night Float Decision To Admit - Pt Status Changed To: Hospital Disposition Of: Inpatient Admission - Admit Certification Admit to Inpatient:: After my assessment, the patient will require hospitalization for at least two midnights. This is because of the severity of symptoms shown, intensity of services needed, and/or the medical risk in this patient being treated as an outpatient. - . Bed Request Type: Med/Surg Admitting Physician: Delfino Lucio Present on Admission - Present on Admission Any Indicators Present on Admission: No History of DVT/PE: Yes History of Uncontrolled Diabetes: No Urinary Catheter: No Decubitus Ulcer Present: No Past Patient History - Infectious Disease Hx of Infectious Diseases: None - Past Social History Smoking Status: Current Some Days Smoker - CARDIAC Hx Cardiac Disorders: No - PULMONARY Hx Respiratory Disorders: No - NEUROLOGICAL Hx Neurological Disorder: No - HEENT Hx HEENT Problems: No - RENAL Hx Chronic Kidney Disease: No - ENDOCRINE/METABOLIC Hx Endocrine Disorders: No - HEMATOLOGICAL/ONCOLOGICAL Hx Cancer: Yes (Nasal Pharengeal Carcinoma) - INTEGUMENTARY Hx Dermatological Problems: No - MUSCULOSKELETAL/RHEUMATOLOGICAL Hx Musculoskeletal Disorders: No Hx Falls: No - GASTROINTESTINAL Hx Gastrointestinal Disorders: No - GENITOURINARY/GYNECOLOGICAL Hx Genitourinary Disorders: No - PSYCHIATRIC Hx Psychophysiologic Disorder: No Hx Substance Use: No - SURGICAL HISTORY Other/Comment: skull based tumor. - ANESTHESIA Hx Anesthesia: Yes Hx Anesthesia Reactions: No Results - Vital Signs Recent Vital Signs: Last Vital Signs Temp 98.7 F 04/12/17 17:23 Pulse 111 H 04/12/17 17:23 Resp 19 04/12/17 17:23 BP 136/96 H 04/12/17 17:23 Pulse Ox 99 04/12/17 17:23 - Labs Result Diagrams: 04/12/17 18:10 04/12/17 18:10 Decision To Admit - Pt Status Changed To: Hospital Disposition Of: Inpatient Admission - Admit Certification Admit to Inpatient:: After my assessment, the patient will require hospitalization for at least two midnights. This is because of the severity of symptoms shown, intensity of services needed, and/or the medical risk in this patient being treated as an outpatient. - . Bed Request Type: Med/Surg Admitting Physician: Delfino Lucio
[2017-04-12 20:58] LABS: ALB/GLOB RATIO 1.3 (1.1-1.8); ALKALINE PHOSPHATASE 68 U/L (38-133); ALT/SGPT 21 U/L (7-56); AST/SGOT 25 U/L (15-39); BILIRUBIN,TOTAL 0.3 mg/dL (0.2-1.3); BLOOD UREA NITROGEN 12 mg/dL (7-21); CARBON DIOXIDE 26 mmol/L (21-33); GFR AFRICAN-AMERICAN > 60; GLUCOSE,RANDOM 83 mg/dL (70-110); POTASSIUM 4.1 mmol/L (3.6-5.0); SODIUM 138 mmol/L (132-148); TOTAL PROTEIN 6.9 g/dL (5.8-8.3)
[2017-04-12 21:03] LABS: CHLORIDE 103 mmol/L (98-107)
[2017-04-12] MEDS: DiphenhydrAMINE 50 mg/ml Inj IVP PRN (23:29)
[2017-04-13] MEDS: Docusate-Senna 50 mg-8.6 mg Tab PO SCH ×2 (01:28→10:29)
[2017-04-13 01:54] VITALS: BMI 25.4
[2017-04-13] MEDS: DiphenhydrAMINE 50 mg/ml Inj IVP PRN ×2 (05:40→11:32)
[2017-04-13 09:13] VITALS: BP 124/90; PULSE 95; RESP 20; TEMP 98.6; O2SAT 100
[2017-04-13] MEDS ORDERED: Non Formulary Medication (Ferrous Sulfate [Ferosul] 325 MG) PO SCH (10:00)
[2017-04-13] MEDS ORDERED: POLYETHYLENE GLYCOL 3350 17 GM/Dose PACKET PO SCH (10:00)
--- NOTE | 2017-04-13 12:06 | CP.PCM.CON ---
History of Present Illness - History of Present Illness History of Present Illness: 31 year old female with history of nasopharyngeal CA S/P chemotherapy x 6 weeks and partial removal of the tumor, HTN, chronic anemia was recently admitted in [facility] for facial pain and CT scan of the head was suggestive of sinusitis, to rule out fungal versus bacterial. She then signed out against medical advice but is now back because she is still complaining of the pain around her face (around the maxillary sinuses). She denies nasal discharge, no cough, no fever or chills, no dizziness, no chest pain, no sore throat, no dysphagia, no nausea or vomiting, no abdominal pain, no diarrhea, no dysuria. Infectious Diseases consult is requested to further evaluate and manage. Review of Systems - Review of Systems All systems: reviewed and no additional remarkable complaints except (as per HPI ) Past Patient History - Infectious Disease Hx of Infectious Diseases: None - Past Social History Smoking Status: Heavy Smoker > 10 Cigarettes Daily - CARDIAC Hx Cardiac Disorders: No - PULMONARY Hx Respiratory Disorders: No - NEUROLOGICAL Hx Neurological Disorder: No - HEENT Hx HEENT Problems: No - RENAL Hx Chronic Kidney Disease: No - ENDOCRINE/METABOLIC Hx Endocrine Disorders: No - HEMATOLOGICAL/ONCOLOGICAL Hx Cancer: Yes (Nasal Pharengeal Carcinoma) - INTEGUMENTARY Hx Dermatological Problems: No - MUSCULOSKELETAL/RHEUMATOLOGICAL Hx Musculoskeletal Disorders: No Hx Falls: No - GASTROINTESTINAL Hx Gastrointestinal Disorders: No - GENITOURINARY/GYNECOLOGICAL Hx Genitourinary Disorders: No - PSYCHIATRIC Hx Psychophysiologic Disorder: No Hx Substance Use: No - SURGICAL HISTORY Other/Comment: skull based tumor. - ANESTHESIA Hx Anesthesia: Yes Hx Anesthesia Reactions: No Meds Home Medications: Home Medication List Medication Instructions Recorded Confirmed Type Amoxicillin/Clavulanate [Augmentin 1 tab PO BID #20 tab 04/13/17 Rx 875 MG-125 MG] Hydrocodone/Acetaminophen [[place] 1 each PO Q6 PRN #12 tablet 04/13/17 Rx 5-325 Tablet] Allergies/Adverse Reactions: Allergies Allergy/AdvReac Type Severity Reaction Status Date / Time acetaminophen [From Percocet] Allergy RASH Verified 04/12/17 17:19 ketorolac [From Toradol] Allergy RASH Verified 04/12/17 17:19 metoclopramide [From Reglan] Allergy RASH Verified 04/12/17 17:19 ondansetron Allergy RASH Verified 04/12/17 17:19 [From Zofran (as hydrochloride)] oxycodone [From Percocet] Allergy RASH Verified 04/12/17 17:19 lactose AdvReac RASH Verified 04/12/17 17:19 - Medications Medications: Current Medications Acetaminophen (Tylenol 325mg Tab) 650 mg PO Q6H PRN PRN Reason: Fever >100.4 F Albuterol Sulfate (Albuterol 0.083% Inhal Naz (2.5 Mg/3 Ml) Ud) 2.5 mg IH Q2H PRN PRN Reason: Shortness of Breath Amlodipine Besylate (Norvasc) 5 mg PO DAILY [facility] Diphenhydramine HCl (Benadryl) 50 mg IVP Q4H PRN PRN Reason: ALLERGY SYMPTOMS Last Admin: 04/13/17 05:40 Dose: 50 mg Famotidine (Pepcid) 20 mg PO BID [facility] Last Admin: 04/13/17 01:28 Dose: Not Given Ferrous Sulfate (Feosol) 324 mg PO DAILY [facility] Hydromorphone HCl (Dilaudid) 3 mg IVP Q3H PRN PRN Reason: Pain, severe (8-10) Last Admin: 04/13/17 05:38 Dose: 3 mg Ibuprofen (Motrin Tab) 600 mg PO Q6H PRN PRN Reason: Pain, Mild (1-3) Labetalol HCl (Trandate) 200 mg PO BID [facility] Last Admin: 04/13/17 01:29 Dose: Not Given Polyethylene Glycol (Miralax) 17 gm PO DAILY [facility] Rivaroxaban (Xarelto) 15 mg PO BID [facility] PRN Reason: Protocol Last Admin: 04/13/17 01:29 Dose: Not Given Senna/Docusate Sodium (Senokot S 50 Mg-8.6 Mg) 1 tab PO BID [facility] Last Admin: 04/13/17 01:28 Dose: Not Given Physical Exam - Constitutional Appears: Non-toxic, No Acute Distress - Head Exam Head Exam: NORMAL INSPECTION - ENT Exam ENT Exam: Mucous Membranes Moist - Neck Exam Neck exam: Negative for: Lymphadenopathy, Meningismus - Respiratory Exam Respiratory Exam: Decreased Breath Sounds - Cardiovascular Exam Cardiovascular Exam: +S1, +S2 - GI/Abdominal Exam GI & Abdominal Exam: Soft. absent: Tenderness Results - Vital Signs Recent Vital Signs: Last Vital Signs Temp 99.2 F 04/13/17 01:45 Pulse 103 H 04/13/17 01:45 Resp 18 04/13/17 01:45 BP 130/92 H 04/13/17 01:45 Pulse Ox 98 04/12/17 20:57 - Labs Result Diagrams: 04/12/17 18:10 04/12/17 18:10 Assessment & Plan - Assessment and Plan (Free Text) Plan: Assessment maxillary and ethmoidal sinusitis, probably bacterial, less likely fungal history of nasopharyngeal CA S/P chemotherapy x 6 weeks and partial removal of the tumor HTN chronic anemia Plan reviewed CT of sinuses - there is sinusitis and mastoiditis - will start Zosyn; beta glucan and galactomannan tests are negative; follow up ENT recommendations
--- NOTE | 2017-04-13 14:33 | CP.PCM.DIS ---
Provider - Provider Date of Admission: 04/12/17 19:16 Attending physician: Viky Roper MD Consults: ENT- Dr. Molinarf ID- [facility] Course - Lab Results Lab Results: Most Recent Lab Values WBC 3.3 10^3/ul (4.5-11.0) L 04/12/17 18:10 RBC 3.56 10^6/uL (3.5-6.1) 04/12/17 18:10 Hgb 9.9 gm/dL (12.0-16.0) L 04/12/17 18:10 Hct 31.0 % (36.0-48.0) L 04/12/17 18:10 MCV 87.1 fL (80.0-105.0) 04/12/17 18:10 MCH 27.8 pg (25.0-35.0) 04/12/17 18:10 MCHC 31.9 g/dl (31.0-37.0) 04/12/17 18:10 RDW 15.8 % (11.5-14.5) H 04/12/17 18:10 Plt Count 302 10^3/uL (120.0-450.0) 04/12/17 18:10 MPV 10.1 fl (7.0-11.0) 04/12/17 18:10 Gran % 69.9 % (50.0-68.0) H 04/12/17 18:10 Lymph % (Auto) 14.0 % (22.0-35.0) L 04/12/17 18:10 [place] % (Auto) 8.8 % (1.0-6.0) H 04/12/17 18:10 Eos % (Auto) 7.0 % (1.5-5.0) H 04/12/17 18:10 Baso % (Auto) 0.3 % (0.0-3.0) 04/12/17 18:10 Gran # 2.29 (1.4-6.5) 04/12/17 18:10 Lymph # 0.5 (1.2-3.4) L 04/12/17 18:10 [place] # 0.3 (0.1-0.6) 04/12/17 18:10 Eos # 0.2 (0.0-0.7) 04/12/17 18:10 Baso # 0.01 K/mm3 (0.0-2.0) 04/12/17 18:10 Sodium 138 mmol/L (132-148) 04/12/17 18:10 Potassium 4.1 mmol/L (3.6-5.0) 04/12/17 18:10 Chloride 103 mmol/L (98-107) 04/12/17 18:10 Carbon Dioxide 26 mmol/L (21-33) 04/12/17 18:10 Anion Gap 13 (10-20) 04/12/17 18:10 BUN 12 mg/dL (7-21) 04/12/17 18:10 Creatinine 0.7 mg/dL (0.5-1.4) 04/12/17 18:10 Est GFR ( Amer) > 60 04/12/17 18:10 Est GFR (Non-Af Amer) > 60 04/12/17 18:10 Random Glucose 83 mg/dL (70-110) 04/12/17 18:10 Calcium 10.0 mg/dL (8.4-10.5) 04/12/17 18:10 Total Bilirubin 0.3 mg/dL (0.2-1.3) 04/12/17 18:10 AST 25 U/L (15-39) 04/12/17 18:10 ALT 21 U/L (7-56) 04/12/17 18:10 Alkaline Phosphatase 68 U/L (38-133) 04/12/17 18:10 Total Protein 6.9 g/dL (5.8-8.3) 04/12/17 18:10 Albumin 3.8 g/dL (3.0-4.8) 04/12/17 18:10 Globulin 3.0 gm/dL 04/12/17 18:10 Albumin/Globulin Ratio 1.3 (1.1-1.8) 04/12/17 18:10 Urine Color Yellow (YELLOW) 04/12/17 15:40 Urine Appearance Clear (CLEAR) 04/12/17 15:40 Urine pH 6.5 (4.7-8.0) 04/12/17 15:40 Ur Specific [place] 1.020 (1.005-1.035) 04/12/17 15:40 Urine Protein Trace mg/dL (<30 mg/dL) H 04/12/17 15:40 Urine Glucose (UA) Negative mg/dL (NEGATIVE) 04/12/17 15:40 Urine Ketones Negative mg/dL (NEGATIVE) 04/12/17 15:40 Urine Blood Negative (NEGATIVE) 04/12/17 15:40 Urine Nitrate Negative (NEGATIVE) 04/12/17 15:40 Urine Bilirubin Negative (NEGATIVE) 04/12/17 15:40 Urine Urobilinogen 0.2 E.U./dL (<1 E.U./dL) 04/12/17 15:40 Ur Leukocyte Esterase Small [place]/uL (NEGATIVE) H 04/12/17 15:40 Urine RBC 0 - 2 /hpf (0-2) 04/12/17 15:40 Urine WBC 5 - 10 /hpf (0-6) 04/12/17 15:40 Ur Epithelial Cells 4 - 5 /hpf (0-5) 04/12/17 15:40 Amorphous Sediment Few 04/12/17 15:40 Urine Bacteria Many (NEG) 04/12/17 15:40 Urine HCG, Qual Negative (NEGATIVE) 04/12/17 15:40 - Hospital Course Hospital Course: 31 arnold old woman who had signed out AMA this morning is back for biopsy by ENT, new symptoms she has developed now is both sided facial pain which is sharp sometimes, dull sometimes, at 10 on 1-10 scale.Has PMH of naso pharyngeal cancer,anemia, sickle cell trait, hypertension, bronchitis , fibroids , C-sectons x 3, pulmonary embolism 2 months ago, right forehead contusion , left eye total blindness, both ears diminished hearing, palpitations, GERD, renal calculus, right sided nephrostomy tube placement, anxiety, panic disorder, weight loss (220 lb to 167 lb),family history of prostate cancer,lung cancer, sickle cell trait and disease. Discharge Exam - Head Exam Head Exam: NORMAL INSPECTION Discharge Plan - Discharge Medications Prescriptions: Amoxicillin/Clavulanate [Augmentin 875 MG-125 MG] 1 tab PO BID #20 tab Hydrocodone/Acetaminophen [[place] 5-325 Tablet] 1 each PO Q6 PRN #12 tablet PRN Reason: Pain, Severe (8-10) - Follow Up Plan Condition: STABLE Disposition: HOME/ ROUTINE Instructions: Sinusitis (GEN), Chronic Pain (DC), Narcotic Pain Management (DC) , Acute Headache (DC), Syncope (DC), Syncope (GEN) Additional Instructions: 1. Pt is to FU with PMD of choice or [facility] within 1 week 2. Pt is to FU with ENT Dr. Lou within 1 week 3. Pt is to FU with [facility] regarding her Nasopharyngeal Ca treatment, as previously scheduled 4. Pt is to complete abx course as prescribed 5. Pt is welcomed to return to [facility] ED if develop any acute symptoms
[2017-04-13] MEDS ORDERED: Piperacillin/Tazobact 3.375 gm 100 ML IVPB SCH (18:00)
== END 2017-04-13 15:10 | disposition home or self-care (01) | DRG 64 ==
LOC: ED 16:56 → ERH 19:16 → 3RSO 21:34
PROVIDERS: ADMIT Internal Medicine; ATTEND Internal Medicine
DX: C11.9 Malignant neoplasm of nasopharynx, unspecified (principal); J32.0 Chronic maxillary sinusitis; J32.2 Chronic ethmoidal sinusitis; I10 Essential (primary) hypertension; D64.9 Anemia, unspecified; K59.00 Constipation, unspecified

== ENCOUNTER 2017-04-15 09:14 | Observation (INO) | payer OTHER ==
[2017-04-15 09:15] VITALS: BMI 25.4
[2017-04-15 09:22] VITALS: BP 122/87; PULSE 113; RESP 18; TEMP 99.5; O2SAT 100
[2017-04-15] MEDS ORDERED: Sodium Chloride 0.9% 1,000 ML IV STA (09:55)
[2017-04-15] MEDS ORDERED: HYDROmorphone 1 mg/ml ISec IVP STA ×2 (09:55→11:40)
--- NOTE | 2017-04-15 09:55 | ED PDOC ---
Arrival/HPI - General Chief Complaint: Syncope Time Seen by Provider: 04/15/17 09:20 Historian: Patient - History of Present Illness Narrative History of Present Illness (Text): 04/15/17 09:47 31 y/o female, pmh including nasopharngeal carcinoma/htn/anemia/dvt/pe/sinustis , on xarelto, had 6 weeks of chemo with 33 radiation treatment, had port removed at the [facility] due to the infection with bactermia with hospitalization for 2 weeks, seen at the ER 2 days ago for the syncope episode and here today because she has pain again today with the headache. Pt. stated that she was at the kitchen and which she pass out again. Pt. is able to provide the full detail of the event, standing at the kitchen with the family without doing anything. Pt. was seen in the ER previous for the same complaints with the headache and syncope episode, discharge home with augmentin 2 days ago, advised outpatient follow up, stated that she pass out today, here at the ER request pain medication for her pain. Pt. has no urinary or bowel incontinence, no tongue biting, no dizziness, no palpitation, no change in vision, no fever or chills, no other medical or psychological complaints. Past Medical History - Provider Review Nursing Documentation Reviewed: Yes - Infectious Disease Hx of Infectious Diseases: None - Cardiac Hx Cardiac Disorders: No Hx Hypertension: Yes - Pulmonary Hx Respiratory Disorders: No - Neurological Hx Neurological Disorder: No - HEENT Hx HEENT Disorder: No - Renal Hx Renal Disorder: No - Endocrine/Metabolic Hx Endocrine Disorders: No - Hematological/Oncological Hx Cancer: Yes (Nasal Pharengeal Carcinoma) Other/Comment: brain cancer - Integumentary Hx Dermatological Disorder: No - Musculoskeletal/Rheumatological Hx Musculoskeletal Disorders: No Hx Falls: No - Gastrointestinal Hx Gastrointestinal Disorders: No - Genitourinary/Gynecological Hx Genitourinary Disorders: No - Psychiatric Hx Psychophysiologic Disorder: No Hx Substance Use: No - Surgical History Other/Comment: skull based tumor. - Anesthesia Hx Anesthesia: Yes Hx Anesthesia Reactions: No Family/Social History - Physician Review Nursing Documentation Reviewed: Yes Family/Social History: Unknown Family HX Smoking Status: Heavy Smoker > 10 Cigarettes Daily Hx Alcohol Use: No Hx Substance Use: No Allergies/Home Meds Allergies/Adverse Reactions: Allergies acetaminophen [From Percocet] Allergy (Verified 04/12/17 17:19) RASH ketorolac [From Toradol] Allergy (Verified 04/12/17 17:19) RASH metoclopramide [From Reglan] Allergy (Verified 04/12/17 17:19) RASH ondansetron [From Zofran (as hydrochloride)] Allergy (Verified 04/12/17 17:19) RASH oxycodone [From Percocet] Allergy (Verified 04/12/17 17:19) RASH lactose Adverse Reaction (Verified 04/12/17 17:19) RASH Home Medications: Home Meds Medication Instructions Recorded Confirmed Labetalol [Trandate] 200 mg PO BID 04/07/17 04/15/17 amLODIPine [Norvasc] 5 mg PO DAILY 04/07/17 04/15/17 Review of Systems - Review of Systems Constitutional: absent: Fatigue Eyes: absent: Vision Changes ENT: absent: Hearing Changes Respiratory: absent: SOB, Cough Cardiovascular: absent: Chest Pain Gastrointestinal: absent: Abdominal Pain, Nausea, Vomiting Genitourinary Female: absent: Dysuria, Frequency, Hematuria Musculoskeletal: absent: Arthralgias, Back Pain Neurological: Headache. absent: Dizziness, Focal Weakness, Speech Changes, Facial Droop Psychiatric: absent: Anxiety, Depression, Suicidal Ideation Physical Exam Vital Signs Reviewed: Yes Vital Signs Temp Pulse Resp BP Pulse Ox 04/15/17 09:15 99.5 F 113 H 18 122/87 100 Temperature: Afebrile Blood Pressure: Normal Pulse: Tachycardic Respiratory Rate: Normal Appearance: Positive for: Well-Appearing, Non-Toxic, Comfortable Pain Distress: Moderate Mental Status: Positive for: Alert and Oriented X 3 - Systems Exam Head: Present: Atraumatic, Normocephalic, Other (there is no physical examination show mastoiditis. +ttp on the sinus. ). No: Tenderness, Contusion, Swelling, Ecchymosis, Abrasion, Laceration Pupils: Present: PERRL Extroacular Muscles: Present: EOMI Conjunctiva: Present: Normal Ears: Present: NORMAL TM, Normal Canal. No: Erythema Mouth: Present: Moist Mucous Membranes Nose (External): Present: Atraumatic. No: Abrasion, Contusion Nose (Internal): Present: Normal Inspection, No Active Bleeding. No: Rhinorrhea , Septal Hematoma, Epistaxis Neck: Present: Normal Range of Motion, Trachea Midline. No: MIDLINE TENDERNESS , Paraspinal Tenderness, Lymphadenopathy Respiratory/Chest: Present: Clear to Auscultation, Good Air Exchange. No: Respiratory Distress, Accessory Muscle Use Cardiovascular: Present: Regular Rate and Rhythm, Normal S1, S2. No: Murmurs Abdomen: Present: Normal Bowel Sounds. No: Tenderness, Distention, Peritoneal Signs, Rebound, Guarding Back: Present: Normal Inspection. No: Midline Tenderness, Paraspinal Tenderness Upper Extremity: Present: Normal Inspection. No: Cyanosis, Edema Lower Extremity: Present: Normal Inspection. No: Edema Neurological: Present: GCS=15, CN II-XII Intact, Speech Normal, Motor Func Grossly Intact, Gait Normal, Memory Normal Skin: Present: Warm, Dry, Normal Color. No: Rashes Psychiatric: Present: Alert, Oriented x 3, Normal Insight, Normal Concentration Medical Decision Making ED Course and Treatment: 04/15/17 09:58 -labs/ua -CT head -EKG -Chest xray -IVF/dilaudid for pain 1mg IV for pain -Observe and reassess 04/15/17 10:57 -Urine hcg negative -EKG: NSR @ 84 BPM, no ST elevation or depression, no T wave inversion, no heart block, compared with previous ekg. 04/15/17 12:34 -Pt. stated that the total of dilaudid 2mg IV is not enough, request more dilaudid for the pain. 04/15/17 12:36 -Urine hcg negative -EKG: NSR @ 84 BPM, no ST elevation or depression, no T wave inversion, no heart block, compared with previous ekg. -CT Head: no acute findings. -Chest x-ray: no active disease -Labs show no elevation of wbc, pending chemistry due to hemolyzed. -UA show trace leuko, she's on augmentin at home, urine culture automatically added by the system. IV zosyn added. -UDS show +benzo and +opiate 04/15/17 13:01 -I spoke to the hospitalist and the medical office technician Dr. Roper and Dr. Juan Pablo Santos along with reviewing the chart, pt. was seen and clear by the neurologist and ENT, EKG show no acute changes, no cardiopulmonary complaints, advised to complete augmentin and outpatient follow up with the ENT. -Pt. is clinically looks and vitally stable, CT Head and EKG show no acute changes compared to previous study. Pt. will need ENT and oncologist follow up. -I discussed the labs/radiology studies in detail with Dr. Sheriff, he agreed on the dispo plan 04/15/17 13:12 -Pt. has no focal neurological deficits. -Dr. Sheriff went into the room to see the patient and obtain labs with the sonogram guided but the patient is demanding dilaudid 2mg with benadryl. -Pt. is very unhappy, agitated, yelling because she didn't get her proper dose of dilaudid and benadryl in the ER. I did explained to the patient inside her room with her seating down on the stretcher that I would like to obtain chemistry labs before continue her dilaudid. Pt. doesn't want to hear the explanation and just want her dilaudid to be continued. I expressed my concern that dilaudid is very addictive and best to keep at the minimum amount but she refused to be reasoned. Dr. Sheriff awared of the case and we will reassess her. 04/15/17 13:20 -I was notifed by the SENIOR SYSTEMS ARCHITECT stefany, pt. removed the IV and left the ER as she doesn't want to continue the care. As per SENIOR SYSTEMS ARCHITECT Stefany, she left the ER with normal gait and posture, no focal neurological deficits. I didn't have the chance to speak to her about the risk and benefits of leaving the ER. DR. Sheriff awared. There was no chance of the AMA. -Pt. will be placed as elopment. 04/15/17 14:37 - Lab Interpretations Lab Results: 04/15/17 10:53 Lab Results 04/15/17 11:53: Urine Color Yellow, Urine Appearance Clear, Urine pH 6.5, Ur Specific [place] <= 1.005, Urine Protein Trace H, Urine Glucose (UA) Negative, Urine Ketones Negative, Urine Blood Negative, Urine Nitrate Negative, Urine Bilirubin Negative, Urine Urobilinogen 0.2, Ur Leukocyte Esterase Small H, Urine RBC 0 - 2, Urine WBC 5 - 10, Ur Epithelial Cells 6 - 8, Urine Bacteria Small, Urine Other Fiber 04/15/17 11:37: Urine Opiates Screen Positive H, Urine Methadone Screen Negative , Ur Barbiturates Screen Negative, Ur Phencyclidine Scrn Negative, Ur Amphetamines Screen Negative, U Benzodiazepines Scrn Positive H, U Oth Cocaine Metabols Negative, U Cannabinoids Screen Negative 04/15/17 10:53: WBC 4.5 D, RBC 3.63, Hgb 10.1 L, Hct 31.2 L, MCV 86.0, MCH 27.8 , MCHC 32.4, RDW 15.6 H, Plt Count 325, MPV 10.5, Gran % 68.4 H, Lymph % (Auto) 14.3 L, [place] % (Auto) 11.9 H, Eos % (Auto) 4.7, Baso % (Auto) 0.7, Gran # 3.06, Lymph # 0.6 L, [place] # 0.5, Eos # 0.2, Baso # 0.03, Retic Count 1.25 Interpretation: Abnormal lab values (+UTI, UDS show +benzo and +opiate) - RAD Interpretation Radiology Orders: 04/15/17 09:55 HEAD W/O CONTRAST [CT] Stat CHEST ONE VIEW [RAD] Stat CT Head: no acute findings. Chest x-ray: no active disease Vocational Education Teacher: Radiologist - EKG Interpretation EKG Interpretation (Text): 04/15/17 10:57 NSR @ 84 BPM, no ST elevation or depression, no T wave inversion, no heart block , compared with previous ekg. Interpreted by ED Physician: Yes Type: 12 lead EKG Comparison: Com.w/previous EKG - Medication Orders Current Medication Orders: Discontinued Medications Diphenhydramine HCl (Benadryl) Confirm Administered Dose 50 mg .ROUTE .STK-MED ONE Stop: 04/15/17 10:14 Last Admin: 04/15/17 10:33 Dose: 50 mg Hydromorphone HCl (Dilaudid) 1 mg IVP STAT STA Stop: 04/15/17 09:56 Last Admin: 04/15/17 10:35 Dose: 1 mg Hydromorphone HCl (Dilaudid) 1 mg IVP STAT STA Stop: 04/15/17 11:41 Last Admin: 04/15/17 12:12 Dose: 1 mg Sodium Chloride (Sodium Chloride 0.9%) 1,000 mls @ 999 mls/hr IV .Q1H1M STA Stop: 04/15/17 10:55 Last Admin: 04/15/17 10:52 Dose: 999 mls/hr Piperacillin Sod/Tazobactam Sod (Zosyn 3.375 In Ns 100ml) 100 mls @ 200 mls/hr IVPB STAT STA PRN Reason: Protocol Stop: 04/15/17 13:02 ED OBSERVATION Date of observation admission: 04/15/17 Time of observation admission: 12:12 - Observation admission statement Patient is being placed in observation because:: pending labs and observe in the ER - Goals of Observation Goals of observation are:: -labs result -dispo, plan of care - Progress Note Progress Note: 04/15/17 12:12 -Pt. is in the ER, resting comfortably, pending for the chemistry - PA / PREPRESS MANAGER / Resident Statement / has reviewed & agrees with the documentation as recorded. / has examined the patient and agrees with the treatment plan. Disposition/Present on Arrival - Present on Arrival Any Indicators Present on Arrival: No History of DVT/PE: Yes History of Uncontrolled Diabetes: No Urinary Catheter: No History of Decub. Ulcer: No History Surgical Site Infection Following: None - Disposition Have Diagnosis and Disposition been Completed?: Yes Diagnosis: Headache, Non-compliant patient Disposition: ELOPEMENT - ER ONLY Disposition Time: 12:10 Patient Problems: Current Active Problems Problem Status Onset Headache Acute Non-compliant patient Acute Condition: GOOD
[2017-04-15] MEDS ORDERED: DiphenhydrAMINE 50 mg/ml Inj ONE (10:13)
[2017-04-15 10:55] LABS: ADD MANUAL DIFF? NO
[2017-04-15 11:02] LABS: BASO # 0.03 K/mm3 (0.0-2.0); BASO % 0.7 % (0.0-3.0); EOS # 0.2 (0.0-0.7); EOS % 4.7 % (1.5-5.0); GRAN # 3.06 (1.4-6.5); GRAN % 68.4 % (50.0-68.0); HEMATOCRIT 31.2 % (36.0-48.0); LYMPH # 0.6 (1.2-3.4); LYMPH % 14.3 % (22.0-35.0); MEAN CORPUSCULAR HEMOGLOBIN 27.8 pg (25.0-35.0); MEAN CORPUSCULAR HGB CONC 32.4 g/dl (31.0-37.0); MEAN PLATELET VOLUME 10.5 fl (7.0-11.0); MONO # 0.5 (0.1-0.6); MONO % 11.9 % (1.0-6.0); PLATELET COUNT 325 10^3/uL (120.0-450.0); RED CELL DISTRIBUTION WIDTH 15.6 % (11.5-14.5); RETIC% 1.25 % (0.5-1.5); WHITE BLOOD COUNT 4.5 10^3/ul (4.5-11.0)
--- NOTE | 2017-04-15 11:32 | CT ---
PROCEDURE: CT HEAD WITHOUT CONTRAST. HISTORY: syncope, headache COMPARISON: None available. TECHNIQUE: Axial computed tomography images were obtained through the head/brain without intravenous contrast. Radiation dose: Total exam DLP = 725 mGy-cm. This CT exam was performed using one or more of the following dose reduction techniques: Automated exposure control, adjustment of the mA and/or kV according to patient size, and/or use of iterative reconstruction technique. FINDINGS: HEMORRHAGE: No intracranial hemorrhage. BRAIN: No mass effect or edema. No atrophy or chronic microvascular ischemic changes. VENTRICLES: Unremarkable. No hydrocephalus. CALVARIUM: Unremarkable. PARANASAL SINUSES: Previous surgery on the nasal cavity and sinuses MASTOID AIR CELLS: Unremarkable as visualized. No inflammatory changes. OTHER FINDINGS: None. IMPRESSION: No acute intracranial findings
[2017-04-15 12:01] LABS: PH,URINE 6.5 (4.7-8.0); URINE BILIRUBIN NEGATIVE (NEGATIVE); URINE BLOOD NEGATIVE (NEGATIVE); URINE GLUCOSE (UA) NEGATIVE (NEGATIVE); URINE KETONE NEGATIVE (NEGATIVE); URINE LEUKOCYTE ESTERASE SMALL Leu/uL (NEGATIVE); URINE PROTEIN TRACE mg/dL (<30 mg/dL); URINE UROBILINOGEN 0.2 E.U./dL (<1 E.U./dL)
[2017-04-15 12:05] LABS: URINE APPEARANCE CLEAR (CLEAR); URINE COLOR YELLOW (YELLOW)
[2017-04-15 12:17] LABS: URINE BACTERIA SMALL (NEG); URINE RBC 0 - 2 /hpf (0-2)
[2017-04-15] MEDS ORDERED: Piperacillin/Tazobact 3.375 gm 100 ML IVPB STA (12:33)
--- NOTE | 2017-04-15 13:13 | RAD ---
PROCEDURE: CHEST RADIOGRAPH, 1 VIEW HISTORY: medical clearance COMPARISON: 04/07/2017 FINDINGS: LUNGS: Clear. PLEURA: No pneumothorax or pleural fluid seen. CARDIOVASCULAR: Normal. OSSEOUS STRUCTURES: No significant abnormalities. VISUALIZED UPPER ABDOMEN: Normal. OTHER FINDINGS: None. IMPRESSION: No active disease.
--- NOTE | 2017-04-16 16:09 | CARD ---
APPROVED REPORT EKG Measurement Heart [id number] <Conclusion> Normal sinus rhythm Normal ECG
== END 2017-04-15 13:35 | disposition left against medical advice (07) ==
LOC: ED 09:14 → EROBSV 12:11
PROVIDERS: ADMIT Student in an Organized Health Care Education/Training Program; ATTEND Student in an Organized Health Care Education/Training Program
DX: R51 Headache (principal); Z91.19 Patient's noncompliance with other medical treatment and regimen; I10 Essential (primary) hypertension; F17.210 Nicotine dependence, cigarettes, uncomplicated
CPT/HCPCS: 70450; 71010; 80324; 80345; 80346; 80349; 80353; 80358; 80361; 81001; 83992; 85025; 85044; 87086; 87181; 93005; 96374; 96376; 99285; G0378; J1170; J1200; J7040

== ENCOUNTER 2017-04-17 19:20 | Emergency (ER) | payer OTHER ==
[2017-04-17 19:27] VITALS: BMI 24.0
[2017-04-17 19:31] VITALS: TEMP 99.5; O2SAT 100
[2017-04-17] MEDS ORDERED: HYDROmorphone 1 mg/ml ISec IVP STA (20:31)
[2017-04-17] MEDS ORDERED: DiphenhydrAMINE 50 mg/ml Inj IVP STA (20:31)
--- NOTE | 2017-04-17 20:31 | ED PDOC ---
Arrival/HPI - General Chief Complaint: Fever Time Seen by Provider: 04/17/17 19:24 Historian: Patient - History of Present Illness Narrative History of Present Illness (Text): 04/17/17 21:32 A 31 year old female, whose past medical history includes nasopharengeal carcinoma and pulmonary embolism, presents to the emergency department after an episode of syncope a couple of hours ago. Patient reported to emergency department in the past for similar symptoms. Patient notes she was bowling, was feeling lightheaded and next thing she remembers she was on the floor. Patient reports fever last night of 101 and 100 this morning. Patient took Advil fever, but no medications for pain. She has chronic headache/facial pain for which she says she used to take dilaudid at home but is not taking this since she moved here to [place] and does not have a doctor here. Time/Duration: 4-6 hours Symptom Onset: Sudden Symptom Course: Unchanged Activities at Onset: Light Modifying Factors (Text): advil for fever Past Medical History - Provider Review Nursing Documentation Reviewed: Yes - Infectious Disease Hx of Infectious Diseases: None - Cardiac Hx Cardiac Disorders: No Hx Hypertension: Yes - Pulmonary Hx Respiratory Disorders: No - Neurological Hx Neurological Disorder: No - HEENT Hx HEENT Disorder: No - Renal Hx Renal Disorder: No - Endocrine/Metabolic Hx Endocrine Disorders: No - Hematological/Oncological Hx Cancer: Yes (Nasal Pharengeal Carcinoma) Other/Comment: brain cancer - Integumentary Hx Dermatological Disorder: No - Musculoskeletal/Rheumatological Hx Musculoskeletal Disorders: No Hx Falls: No - Gastrointestinal Hx Gastrointestinal Disorders: No - Genitourinary/Gynecological Hx Genitourinary Disorders: No - Psychiatric Hx Psychophysiologic Disorder: No Hx Substance Use: No - Surgical History Other/Comment: skull based tumor. - Anesthesia Hx Anesthesia: Yes Hx Anesthesia Reactions: No Family/Social History - Physician Review Nursing Documentation Reviewed: Yes Family/Social History: No Known Family HX Smoking Status: Heavy Smoker > 10 Cigarettes Daily Hx Alcohol Use: No Hx Substance Use: No Allergies/Home Meds Allergies/Adverse Reactions: Allergies acetaminophen [From Percocet] Allergy (Verified 04/17/17 19:27) RASH ketorolac [From Toradol] Allergy (Verified 04/17/17 19:27) RASH metoclopramide [From Reglan] Allergy (Verified 06/18/17 19:27) RASH ondansetron [From Zofran (as hydrochloride)] Allergy (Verified 04/17/17 19:27) RASH oxycodone [From Percocet] Allergy (Verified 04/17/17 19:27) RASH lactose Adverse Reaction (Verified 04/17/17 19:27) RASH Home Medications: Home Meds Medication Instructions Recorded Confirmed Labetalol [Trandate] 200 mg PO BID 04/07/17 04/17/17 amLODIPine [Norvasc] 5 mg PO DAILY 04/07/17 04/17/17 Review of Systems - Physician Review All systems were reviewed & negative as marked: Yes - Review of Systems Constitutional: Fevers, Other (lightheaded) Respiratory: absent: Cough Cardiovascular: Syncope Gastrointestinal: absent: Diarrhea, Vomiting Neurological: Headache (frontal facial, chronic). absent: Focal Weakness Physical Exam Vital Signs Reviewed: Yes Vital Signs Temp Pulse Resp BP Pulse Ox 04/17/17 19:29 99.5 F 86 19 162/105 H 100 Temperature: Afebrile Blood Pressure: Hypertensive Pulse: Regular Respiratory Rate: Normal Appearance: Positive for: Well-Appearing, Non-Toxic, Comfortable Pain Distress: None Mental Status: Positive for: Alert and Oriented X 3 - Systems Exam Head: Present: Atraumatic, Normocephalic Pupils: Present: PERRL Conjunctiva: Present: Normal Mouth: Present: Moist Mucous Membranes Neck: Present: Normal Range of Motion Respiratory/Chest: Present: Clear to Auscultation, Good Air Exchange. No: Respiratory Distress, Accessory Muscle Use Cardiovascular: Present: Regular Rate and Rhythm, Normal S1, S2. No: Murmurs Abdomen: Present: Normal Bowel Sounds. No: Tenderness, Distention, Peritoneal Signs Back: Present: Normal Inspection Upper Extremity: Present: Normal Inspection. No: Cyanosis, Edema Lower Extremity: Present: Normal Inspection. No: Edema Neurological: Present: GCS=15, CN II-XII Intact (exc vision left eye, chronic), Speech Normal, Motor Func Grossly Intact, Normal Sensory Function, Normal Cerebellar Funct, Gait Normal, Other (no focal deficits) Skin: Present: Warm, Dry, Normal Color. No: Rashes Psychiatric: Present: Alert, Oriented x 3 Medical Decision Making ED Course and Treatment: 04/17/17 22:10 The pt is outside smoking. I asked her if she could come back in so that we can finish our evaluation. ecg- nsr 89, nl axis, nl int, no acute ischemia the pt remained well-appearing, no distress, frequently up and ambulatory during her ED stay she has recent admission for same complaint and had negative echo I disc w her the importance of follow up for her issues as well as reasons to return she was comfortable w the plan for dc, requested another dose of pain medicine before she leaves 2300 pt signed out to Dr Arellano- plan to follow up ddimer, if negative pt to be dc home. - Lab Interpretations Lab Results: 04/17/17 20:45 04/17/17 21:50 Lab Results 04/17/17 21:50: Sodium 141, Potassium 3.8, Chloride 108 H, Carbon Dioxide 25, Anion Gap 12, BUN 15, Creatinine 0.7, Est GFR ( Amer) > 60, Est GFR (Non- Af Amer) > 60, Random Glucose 85, Calcium 9.9, Total Bilirubin 0.2, AST 23, ALT 26, Alkaline Phosphatase 76, Troponin I < 0.01, Total Protein 7.4, Albumin 4.3, Globulin 3.1, Albumin/Globulin Ratio 1.4 04/17/17 20:45: WBC 5.5 D, RBC 3.40 L, Hgb 9.6 L, Hct 29.4 L, MCV 86.5, MCH 28.2, MCHC 32.7, RDW 15.4 H, Plt Count 303, MPV 10.6, Gran % 69.0 H, Lymph % ( Auto) 17.3 L, [place] % (Auto) 10.2 H, Eos % (Auto) 3.1, Baso % (Auto) 0.4, Gran # 3.80, Lymph # 1.0 L, [place] # 0.6, Eos # 0.2, Baso # 0.02 04/17/17 20:30: Urine Color yellow, Urine Appearance Clear, Urine pH 7.0, Ur Specific [place] 1.020, Urine Protein 30 H, Urine Glucose (UA) Negative, Urine Ketones Trace H, Urine Blood Negative, Urine Nitrate Negative, Urine Bilirubin Negative, Urine Urobilinogen 0.2, Ur Leukocyte Esterase Trace H, Urine RBC TEST NOT PERFORMED, Urine WBC 5 - 10, Ur Epithelial Cells 6 - 8, Urine HCG, Qual Negative I have reviewed the lab results: Yes - RAD Interpretation Radiology Orders: 04/17/17 20:30 CHEST PORTABLE [RAD] Stat - EKG Interpretation Interpreted by ED Physician: Yes Type: 12 lead EKG - Medication Orders Current Medication Orders: Discontinued Medications Diphenhydramine HCl (Benadryl) 25 mg IVP STAT STA Stop: 04/17/17 20:32 Last Admin: 04/17/17 21:02 Dose: 25 mg Hydromorphone HCl (Dilaudid) 2 mg IVP STAT STA Stop: 04/17/17 20:32 Last Admin: 04/17/17 21:03 Dose: 2 mg - Scribe Statement The provider has reviewed the documentation as recorded by the Fidel Downey Provider Scribe Attestation: All medical record entries made by the Ceceibyenifer were at my direction and personally dictated by me. I have reviewed the chart and agree that the record accurately reflects my personal performance of the history, physical exam, medical decision making, and the department course for this patient. I have also personally directed, reviewed, and agree with the discharge instructions and disposition. Disposition/Present on Arrival - Present on Arrival Any Indicators Present on Arrival: Yes History of DVT/PE: Yes History of Uncontrolled Diabetes: No Urinary Catheter: No History of Decub. Ulcer: No History Surgical Site Infection Following: None - Disposition Have Diagnosis and Disposition been Completed?: No Diagnosis: Syncope Disposition Time: 23:00 Patient Problems: Current Active Problems Problem Status Onset Syncope Acute Condition: STABLE Discharge Instructions (ExitCare): Syncope (ED) Additional Instructions: Please follow up with a primary doctor, oncologist, and ENT. Phone numbers are provided below. Return to the ER for any worsening symptoms or for any other concerns. Referrals: [facility] at [facility] [Outside] - Follow up with primary Paulo Tucker DO [Doctor Osteopathy] - Follow up with primary Iesha Acevedo MD [Staff Provider] - Follow up with primary
[2017-04-17 20:54] LABS: ADD MANUAL DIFF? NO
[2017-04-17 20:58] LABS: BASO # 0.02 K/mm3 (0.0-2.0); BASO % 0.4 % (0.0-3.0); EOS # 0.2 (0.0-0.7); EOS % 3.1 % (1.5-5.0); HEMATOCRIT 29.4 % (36.0-48.0); LYMPH % 17.3 % (22.0-35.0); MEAN CELL VOLUME 86.5 fL (80.0-105.0); MEAN CORPUSCULAR HEMOGLOBIN 28.2 pg (25.0-35.0); MEAN CORPUSCULAR HGB CONC 32.7 g/dl (31.0-37.0); MEAN PLATELET VOLUME 10.6 fl (7.0-11.0); MONO # 0.6 (0.1-0.6); MONO % 10.2 % (1.0-6.0); PLATELET COUNT 303 10^3/uL (120.0-450.0); RED CELL DISTRIBUTION WIDTH 15.4 % (11.5-14.5); WHITE BLOOD COUNT 5.5 10^3/ul (4.5-11.0)
[2017-04-17 21:02] LABS: URINE BILIRUBIN NEGATIVE (NEGATIVE); URINE BLOOD NEGATIVE (NEGATIVE); URINE GLUCOSE (UA) NEGATIVE (NEGATIVE); URINE KETONE TRACE mg/dL (NEGATIVE); URINE LEUKOCYTE ESTERASE TRACE Leu/uL (NEGATIVE); URINE PROTEIN 30 mg/dL (<30 mg/dL); URINE UROBILINOGEN 0.2 E.U./dL (<1 E.U./dL)
[2017-04-17 21:29] LABS: URINE APPEARANCE CLEAR (CLEAR)
[2017-04-17 22:17] LABS: ALB/GLOB RATIO 1.4 (1.1-1.8); ALKALINE PHOSPHATASE 76 U/L (38-133); ALT/SGPT 26 U/L (7-56); AST/SGOT 23 U/L (15-39); BILIRUBIN,TOTAL 0.2 mg/dL (0.2-1.3); BLOOD UREA NITROGEN 15 mg/dL (7-21); CALCIUM 9.9 mg/dL (8.4-10.5); CARBON DIOXIDE 25 mmol/L (21-33); CHLORIDE 108 mmol/L (98-107); GFR AFRICAN-AMERICAN > 60; GLUCOSE,RANDOM 85 mg/dL (70-110); POTASSIUM 3.8 mmol/L (3.6-5.0); SODIUM 141 mmol/L (132-148); TOTAL PROTEIN 7.4 g/dL (5.8-8.3)
[2017-04-17 22:42] LABS: TROPONIN I < 0.01 ng/mL
--- NOTE | 2017-04-17 23:11 | ED PDOC ---
Physical Exam Vital Signs Temp Pulse Resp BP Pulse Ox 04/17/17 19:29 99.5 F 86 19 162/105 H 100 Medical Decision Making ED Course and Treatment: 04/17/17 23:00 Case endorsed to me by . Pt, whose past medical history includes nasopharyngeal carcinoma and PE, presented for syncope. Pt had presented to the Emergency department for similar symptoms in the past with full workup. Pending D-dimer ordered prior to final disposition and if negative, d/c home. 04/18/17 00:05 Reviewed labs, negative D-dimer. On re-evaluation, the patient feels better and is in no acute distress. I have discussed the results and plan with the patient , who expresses understanding. Patient in agreement with plan to discharged home. Patient is stable for discharge. Patient was instructed to follow up with physician/clinic in 1-2 days or return if symptoms worsen or new concerning symptoms arise. - Lab Interpretations Lab Results: 04/17/17 20:45 04/17/17 21:50 Lab Results 04/17/17 21:50: Sodium 141, Potassium 3.8, Chloride 108 H, Carbon Dioxide 25, Anion Gap 12, BUN 15, Creatinine 0.7, Est GFR ( Amer) > 60, Est GFR (Non- Af Amer) > 60, Random Glucose 85, Calcium 9.9, Total Bilirubin 0.2, AST 23, ALT 26, Alkaline Phosphatase 76, Troponin I < 0.01, Total Protein 7.4, Albumin 4.3, Globulin 3.1, Albumin/Globulin Ratio 1.4 04/17/17 20:45: WBC 5.5 D, RBC 3.40 L, Hgb 9.6 L, Hct 29.4 L, MCV 86.5, MCH 28.2, MCHC 32.7, RDW 15.4 H, Plt Count 303, MPV 10.6, Gran % 69.0 H, Lymph % ( Auto) 17.3 L, [place] % (Auto) 10.2 H, Eos % (Auto) 3.1, Baso % (Auto) 0.4, Gran # 3.80, Lymph # 1.0 L, [place] # 0.6, Eos # 0.2, Baso # 0.02 04/17/17 20:30: Urine Color yellow, Urine Appearance Clear, Urine pH 7.0, Ur Specific [place] 1.020, Urine Protein 30 H, Urine Glucose (UA) Negative, Urine Ketones Trace H, Urine Blood Negative, Urine Nitrate Negative, Urine Bilirubin Negative, Urine Urobilinogen 0.2, Ur Leukocyte Esterase Trace H, Urine RBC TEST NOT PERFORMED, Urine WBC 5 - 10, Ur Epithelial Cells 6 - 8, Urine HCG, Qual Negative 04/17/17 20:30: D-Dimer, Quantitative < 200 - RAD Interpretation Radiology Orders: 04/17/17 20:30 CHEST PORTABLE [RAD] Stat - Medication Orders Current Medication Orders: Diphenhydramine HCl (Benadryl) 25 mg IVP ONCE LOPEZ Last Admin: 04/17/17 23:24 Dose: 25 mg Hydromorphone HCl (Dilaudid) 2 mg IVP ONCE LOPEZ Last Admin: 04/17/17 23:25 Dose: 2 mg Discontinued Medications Diphenhydramine HCl (Benadryl) 25 mg IVP STAT STA Stop: 04/17/17 20:32 Last Admin: 04/17/17 21:02 Dose: 25 mg Hydromorphone HCl (Dilaudid) 2 mg IVP STAT STA Stop: 04/17/17 20:32 Last Admin: 04/17/17 21:03 Dose: 2 mg Disposition/Present on Arrival - Present on Arrival Any Indicators Present on Arrival: Yes History of DVT/PE: Yes History of Uncontrolled Diabetes: No Urinary Catheter: No History of Decub. Ulcer: No History Surgical Site Infection Following: None - Disposition Have Diagnosis and Disposition been Completed?: Yes Diagnosis: Syncope Disposition: HOME/ ROUTINE Disposition Time: 00:05 Patient Problems: Current Active Problems Problem Status Onset Syncope Acute Condition: STABLE Discharge Instructions (ExitCare): Syncope (ED) Additional Instructions: Please follow up with a primary doctor, oncologist, and ENT. Phone numbers are provided below. Return to the ER for any worsening symptoms or for any other concerns. Referrals: [facility] at [facility] [place] [Outside] - Follow up with primary Paulo Tucker DO [Doctor Osteopathy] - Follow up with primary Iesha Acevedo MD [Staff Provider] - Follow up with primary
[2017-04-17] MEDS ORDERED: HYDROmorphone 2 mg/ml ISec IVP SCH (23:20)
[2017-04-17] MEDS ORDERED: DiphenhydrAMINE 50 mg/ml Inj IVP SCH (23:20)
[2017-04-18 00:31] VITALS: BP 150/80; PULSE 80; RESP 18
--- NOTE | 2017-04-18 09:47 | RAD ---
HISTORY: syncope COMPARISON: 04/15/2017 FINDINGS: LUNGS: The lungs are clear. PLEURA: No significant pleural effusion identified, no pneumothorax apparent. CARDIOVASCULAR: Normal. OSSEOUS STRUCTURES: No significant abnormalities. VISUALIZED UPPER ABDOMEN: Normal. OTHER FINDINGS: None. IMPRESSION: No active pulmonary disease.
--- NOTE | 2017-04-19 00:12 | CARD ---
APPROVED REPORT EKG Measurement Heart [id number] <Conclusion> Normal sinus rhythm Possible Left atrial enlargement Borderline ECG
== END 2017-04-18 00:31 | disposition home or self-care (01) ==
LOC: ED 19:20
DX: R55 Syncope and collapse (principal); I10 Essential (primary) hypertension; Z86.711 Personal history of pulmonary embolism; F17.210 Nicotine dependence, cigarettes, uncomplicated
CPT/HCPCS: 71010; 80053; 81001; 84484; 84703; 85025; 85378; 87086; 93005; 96374; 96375; 96376; 99283; J1170; J1200

== ENCOUNTER 2017-04-19 22:48 | Emergency (ER) | payer OTHER ==
[2017-04-19 22:49] VITALS: BMI 24.0
[2017-04-19 23:05] VITALS: TEMP 99; O2SAT 100
[2017-04-19] MEDS ORDERED: Sodium Chloride 0.9% 1,000 ML IV STA (23:37)
[2017-04-20 00:11] LABS: URINE BILIRUBIN SMALL (NEGATIVE); URINE BLOOD NEGATIVE (NEGATIVE); URINE GLUCOSE (UA) NEGATIVE (NEGATIVE); URINE KETONE 15 mg/dL (NEGATIVE); URINE LEUKOCYTE ESTERASE NEGATIVE Leu/uL (NEGATIVE); URINE PROTEIN 100 mg/dL (<30 mg/dL)
[2017-04-20 00:13] LABS: URINE APPEARANCE CLEAR (CLEAR); URINE COLOR YELLOW (YELLOW)
--- NOTE | 2017-04-20 00:13 | ED PDOC ---
Arrival/HPI - General Chief Complaint: Syncope Time Seen by Provider: 04/19/17 22:50 Historian: Patient - History of Present Illness Narrative History of Present Illness (Text): 04/20/17 00:10 31yo female with history of Nasopharyngeal CA and PE who present with complaint of syncopal episode, headache, facial pain and neck pain. she has been seen here multiple times this month for similar symptoms and head CT was negative at each time. She states she was told that she "passed out" for few minutes. States she was suppose to f/u with ENT for biopsy, but have not seen ENT yet. Her pain is chronic. She denies focal weakness, visual changes, tongue biting, urinary incontinence, nausea, vomiting, any other complaint. she is requesting pain medication states she is allergic to Percocet and Toradol. Past Medical History - Provider Review Nursing Documentation Reviewed: Yes - Infectious Disease Hx of Infectious Diseases: None - Cardiac Hx Cardiac Disorders: Yes Hx Hypertension: Yes - Pulmonary Hx Respiratory Disorders: No - Neurological Hx Neurological Disorder: No - HEENT Hx HEENT Disorder: No - Renal Hx Renal Disorder: No - Endocrine/Metabolic Hx Endocrine Disorders: No - Hematological/Oncological Hx Cancer: Yes (Nasal Pharengeal Carcinoma) Other/Comment: brain cancer - Integumentary Hx Dermatological Disorder: No - Musculoskeletal/Rheumatological Hx Musculoskeletal Disorders: No Hx Falls: No - Gastrointestinal Hx Gastrointestinal Disorders: No - Genitourinary/Gynecological Hx Genitourinary Disorders: No - Psychiatric Hx Psychophysiologic Disorder: No Hx Substance Use: No - Surgical History Other/Comment: skull based tumor. - Anesthesia Hx Anesthesia: Yes Hx Anesthesia Reactions: No Family/Social History - Physician Review Nursing Documentation Reviewed: Yes Family/Social History: Unknown Family HX Smoking Status: Heavy Smoker > 10 Cigarettes Daily Hx Alcohol Use: No Hx Substance Use: No Allergies/Home Meds Allergies/Adverse Reactions: Allergies acetaminophen [From Percocet] Allergy (Verified 04/17/17 19:27) RASH ketorolac [From Toradol] Allergy (Verified 04/17/17 19:27) RASH metoclopramide [From Reglan] Allergy (Verified 04/17/17 19:27) RASH ondansetron [From Zofran (as hydrochloride)] Allergy (Verified 04/17/17 19:27) RASH oxycodone [From Percocet] Allergy (Verified 04/17/17 19:27) RASH lactose Adverse Reaction (Verified 04/17/17 19:27) RASH Home Medications: Home Meds Medication Instructions Recorded Confirmed No Known Home Med 04/19/17 04/19/17 Review of Systems - Physician Review All systems were reviewed & negative as marked: Yes - Review of Systems Constitutional: Normal Eyes: Normal ENT: Normal Respiratory: Normal Cardiovascular: Normal Gastrointestinal: Normal Genitourinary Female: Normal Musculoskeletal: Neck Pain Skin: Normal Neurological: Headache, Dizziness (Syncope) Endocrine: Normal Hemo/Lymphatic: Normal Psychiatric: Normal Physical Exam Vital Signs Reviewed: Yes Vital Signs Temp Pulse Resp BP Pulse Ox 04/19/17 23:04 99 F 92 H 16 145/93 H 100 Temperature: Afebrile Blood Pressure: Normal Pulse: Regular Respiratory Rate: Normal Appearance: Positive for: Well-Appearing, Non-Toxic, Comfortable Pain Distress: None Mental Status: Positive for: Alert and Oriented X 3 - Systems Exam Head: Present: Atraumatic, Normocephalic Pupils: Present: PERRL Extroacular Muscles: Present: EOMI Conjunctiva: Present: Normal Mouth: Present: Moist Mucous Membranes Nose (Internal): Present: Other (Tenderness over the left maxillary and frontal sinuses) Neck: Present: Normal Range of Motion. No: MIDLINE TENDERNESS, Paraspinal Tenderness Respiratory/Chest: Present: Clear to Auscultation, Good Air Exchange. No: Respiratory Distress, Accessory Muscle Use Cardiovascular: Present: Regular Rate and Rhythm, Normal S1, S2. No: Murmurs Abdomen: Present: Normal Bowel Sounds. No: Tenderness, Distention, Peritoneal Signs Back: Present: Normal Inspection Upper Extremity: Present: Normal Inspection. No: Cyanosis, Edema Lower Extremity: Present: Normal Inspection. No: Edema Neurological: Present: GCS=15, CN II-XII Intact, Speech Normal Skin: Present: Warm, Dry, Normal Color. No: Rashes Psychiatric: Present: Alert, Oriented x 3, Normal Insight, Normal Concentration Medical Decision Making ED Course and Treatment: 04/20/17 00:44 PT in ED for stated history. She was neurologically intact. Review of her chart indicates many ED visit this month for similar symptoms. Her last ED visit was on 04/17/17. she have also had multiple negative Head CT. Her lab from the was unremarkable. PT will be admitted for her complaint of recurrent syncopal episode. Labs pending. Case was DW Dr. Grissom and he accepted pt into the service. - Lab Interpretations Lab Results: Lab Results 04/19/17 23:35: Urine Color Yellow, Urine Appearance Clear, Urine pH 6.0, Ur Specific [place] 1.025, Urine Protein 100 H, Urine Glucose (UA) Negative, Urine Ketones 15 H, Urine Blood Negative, Urine Nitrate Negative, Urine Bilirubin Small H, Urine Urobilinogen 1.0 H, Ur Leukocyte Esterase Negative, Urine RBC 1 - 3, Urine WBC 0 - 2, Ur Epithelial Cells 0 - 2, Urine Bacteria Occ - Medication Orders Current Medication Orders: Discontinued Medications Sodium Chloride (Sodium Chloride 0.9%) 1,000 mls @ 999 mls/hr IV .Q1H1M STA Stop: 04/20/17 00:37 Disposition/Present on Arrival - Present on Arrival Any Indicators Present on Arrival: No History of DVT/PE: Yes History of Uncontrolled Diabetes: No Urinary Catheter: No History of Decub. Ulcer: No History Surgical Site Infection Following: None - Disposition Have Diagnosis and Disposition been Completed?: Yes Diagnosis: Syncope, Headache, Intractable pain Disposition: HOSPITALIZED Disposition Time: 00:20 Condition: FAIR Discharge Instructions (ExitCare): Syncope (ED)
[2017-04-20 00:23] LABS: URINE EPITHELIAL CELLS 0 - 2 /hpf (0-5); URINE WBC 0 - 2 /hpf (0-6)
[2017-04-20 00:24] LABS: URINE BACTERIA OCC (NEG)
[2017-04-20 01:00] LABS: ADD MANUAL DIFF? NO
[2017-04-20 01:11] LABS: BASO # 0.02 K/mm3 (0.0-2.0); BASO % 0.4 % (0.0-3.0); EOS # 0.1 (0.0-0.7); EOS % 1.7 % (1.5-5.0); GRAN # 3.41 (1.4-6.5); GRAN % 72.6 % (50.0-68.0); HEMATOCRIT 30.2 % (36.0-48.0); LYMPH # 0.7 (1.2-3.4); LYMPH % 15.1 % (22.0-35.0); MEAN CELL VOLUME 85.1 fL (80.0-105.0); MEAN CORPUSCULAR HEMOGLOBIN 27.6 pg (25.0-35.0); MEAN CORPUSCULAR HGB CONC 32.5 g/dl (31.0-37.0); MONO # 0.5 (0.1-0.6); MONO % 10.2 % (1.0-6.0); PLATELET COUNT 310 10^3/uL (120.0-450.0); WHITE BLOOD COUNT 4.7 10^3/ul (4.5-11.0)
--- NOTE | 2017-04-20 01:12 | CP.PCM.HP ---
History of Present Illness - History of Present Illness History of Present Illness: cc: syncope HPI: Patient is a 31yo female with past medical history of nasopharyngeal carcinoma, pulmonary embolism on xarelto and hypertension who presented to [facility] c/o syncopal episode at home. Patient has had multiple admissions for the same complaint within the last few weeks. On this occasion, she reports having passed out for a few minutes. She denied tongue biting, post- ictal state, bowel/bladder incontinence. She reports that her sycopal episode was associated with headache and neck pain. She previously had extensive workups for syncope. CT Head from prior presentations were negative. She was also evaluated by ENT and was instructed to follow up as an outpatient however has failed to do so. Patient requested pain medication. She denies chest pain, palpitations, SOB, abdominal pain, nausea, vomiting, fever, chills. 12 point ROS as per HPI above, otherwise negative PMHx: nasopharyngeal carcinoma, pulmonary embolism 2 months prior on xarelto, hypertension, sickle cell trait, fibroids, left eye total blindness, b/l ears diminished hearing PSHx: tumor debulking last october, C-sectons x 3 Allergies: Tylenol, Ketorolac, Metoclopramide, Zofran, Oxycodone Medications: Labetalol 200mg BID, Norvasc 2.5mg daily Family Hx: unknown; patient is adopted Social Hx: Lives at home, unemployed Present on Admission - Present on Admission Any Indicators Present on Admission: Yes History of DVT/PE: Yes Past Patient History - Infectious Disease Hx of Infectious Diseases: None - Past Social History Smoking Status: Heavy Smoker > 10 Cigarettes Daily - CARDIAC Hx Cardiac Disorders: Yes Hx Hypertension: Yes - PULMONARY Hx Respiratory Disorders: No - NEUROLOGICAL Hx Neurological Disorder: No - HEENT Hx HEENT Problems: No - RENAL Hx Chronic Kidney Disease: No - ENDOCRINE/METABOLIC Hx Endocrine Disorders: No - HEMATOLOGICAL/ONCOLOGICAL Hx Cancer: Yes (Nasal Pharengeal Carcinoma) Other/Comment: brain cancer - INTEGUMENTARY Hx Dermatological Problems: No - MUSCULOSKELETAL/RHEUMATOLOGICAL Hx Musculoskeletal Disorders: No Hx Falls: No - GASTROINTESTINAL Hx Gastrointestinal Disorders: No - GENITOURINARY/GYNECOLOGICAL Hx Genitourinary Disorders: No - PSYCHIATRIC Hx Psychophysiologic Disorder: No Hx Substance Use: No - SURGICAL HISTORY Other/Comment: skull based tumor. - ANESTHESIA Hx Anesthesia: Yes Hx Anesthesia Reactions: No Meds Allergies/Adverse Reactions: Allergies Allergy/AdvReac Type Severity Reaction Status Date / Time acetaminophen [From Percocet] Allergy RASH Verified 04/17/17 19:27 ketorolac [From Toradol] Allergy RASH Verified 04/17/17 19:27 metoclopramide [From Reglan] Allergy RASH Verified 04/17/17 19:27 ondansetron Allergy RASH Verified 04/17/17 19:27 [From Zofran (as hydrochloride)] oxycodone [From Percocet] Allergy RASH Verified 04/17/17 19:27 lactose AdvReac RASH Verified 04/17/17 19:27 Results - Vital Signs Recent Vital Signs: Last Vital Signs Temp 99 F 04/19/17 23:04 Pulse 92 H 04/19/17 23:04 Resp 16 04/19/17 23:04 BP 145/93 H 04/19/17 23:04 Pulse Ox 100 04/19/17 23:04 - Labs Result Diagrams: 04/20/17 00:34 04/20/17 00:34 Assessment & Plan - Assessment and Plan (Free Text) Plan: Patient refused further medical treatment and wished to sign out against medical advice. The patient was informed of the risks (which include but are not limited to repeat episodes of syncopal episodes that may be life threatening , trauma secondary to passing out, ) of signing out against medical advice. Despite our best efforts, Ms. Fletcher refused further evaluation and treatment of her syncope. She communicated understanding of the risks involved. She was urged to follow up with her primary doctor, oncologist and ENT physician as an outpatient. - Date & Time Date: 04/20/17 Time: 02:51
[2017-04-20 01:13] LABS: INR 0.99 (0.93-1.08); PARTIAL THROMBOPLASTIN TIME 28.4 Seconds (23.7-30.8)
[2017-04-20 01:14] LABS: ALB/GLOB RATIO 1.4 (1.1-1.8); ALKALINE PHOSPHATASE 72 U/L (38-133); ALT/SGPT 25 U/L (7-56); AST/SGOT 21 U/L (15-39); BILIRUBIN,TOTAL 0.4 mg/dL (0.2-1.3); BLOOD UREA NITROGEN 18 mg/dL (7-21); CALCIUM 9.5 mg/dL (8.4-10.5); CARBON DIOXIDE 23 mmol/L (21-33); CHLORIDE 107 mmol/L (98-107); GFR AFRICAN-AMERICAN > 60; GLUCOSE,RANDOM 81 mg/dL (70-110); POTASSIUM 4.2 mmol/L (3.6-5.0); SODIUM 138 mmol/L (132-148); TOTAL PROTEIN 6.8 g/dL (5.8-8.3)
[2017-04-20 01:17] VITALS: BP 158/94; PULSE 77; RESP 17
[2017-04-20 01:28] LABS: TROPONIN I < 0.01 ng/mL
[2017-04-20 09:56] LABS: MAGNESIUM 1.7 mg/dL (1.7-2.2)
--- NOTE | 2017-04-20 15:59 | CARD ---
APPROVED REPORT EKG Measurement Heart [id number] <Conclusion> Normal sinus rhythm Normal ECG
== END 2017-04-20 02:26 | disposition short-term general hospital (02) ==
LOC: ED 22:48 → UNDOADMOB 04-20 00:38 → ERH 04-20 00:38
DX: R55 Syncope and collapse (principal); R51 Headache; C11.9 Malignant neoplasm of nasopharynx, unspecified; I10 Essential (primary) hypertension; F17.210 Nicotine dependence, cigarettes, uncomplicated
CPT/HCPCS: 80053; 81001; 82550; 83615; 83735; 84100; 84443; 84484; 85025; 85610; 85730; 93005; 99285; J7040